=== PATIENT | female | born 1940 | race Two or more races ===

== ENCOUNTER 2025-03-25 19:08 | Inpatient (IN) | payer MEDICARE, MEDICAID, SELFPAY ==
[2025-03-25 19:14] VITALS: BP 163/140; PULSE 62; PULSE 84; RESP 18; RESP 26; TEMP 35.8; O2SAT 94; O2SAT 95
[2025-03-25 19:18] VITALS: BMI 26.6
--- NOTE | 2025-03-25 19:25 | PD.EDAMS ---
Altered Mental Status RME/HPI General Chief Complaint: Altered Mental Status Stated Complaint: AMS Time Seen by Provider: 03/25/25 19:40 Arrival date/time: 03/25/25 19:08 RME / HPI RME / HPI narrative: Dr. Horvath?s Main ED Evaluation: 84yo female with a history of TIA, CHF, COPD, anemia BIBA from [facility] presents to the ED for a chief complaint of altered mental status. Per EMS, patient is normally a GCS of 15, but appeared to be altered today, so they sent her over for evaluation. Patient endorses having dysuria and chills. Patient denies any cough, chest pain, abdominal pain, back pain or any other associated symptoms. No known allergies. Related Data Allergies Allergy/AdvReac Type Severity Reaction Status Date / Time No Known Allergies Allergy Verified 03/25/25 19:14 Review of Systems Review of Systems Systems Reviewed: All systems reviewed, normal except as documented ED Exam Narrative Physical exam: GENERAL APPEARANCE: alert and oriented x person and place, well-developed, well-nourished, no acute distress VITALS: All vitals were reviewed and the pulse ox is 98% on 5L, which is adequate according to my interpretation. HEENT: Normocephalic, atraumatic; pupils equal, round, reactive to light; EOMI; mucous membranes pink, moist; oropharynx clear NECK: Supple LUNGS: CTABL; no wheezes, no rales, no rhonchi HEART: Regular rate, regular rhythm; normal S1, S2; no murmurs ABDOMEN: non distended; normal BS; soft, no tenderness, no guarding, no rebound; no masses, no organomegaly, no hernia BACK: no CVA tenderness EXTREMITIES: atraumatic; no edema NEUROLOGIC: awake; alert and oriented x person and place; cranial nerves II-XII grossly intact; no focal sensory or motor deficits PSYCHIATRIC: appropriate mood and affect SKIN: warm, dry, normal color; no rashes Course Course Course Narrative: CXR is ordered for determining the etiology of AMS. Quality Measures Current suspected stage: ruled out Possible source: pulmonary Blood cultures ordered: yes Antibiotic ordered: Yes Pertinent labs: 03/25/25 20:04 Lactic Acid 0.5 mMol/L (0.4-2.0) Procalcitonin 0.10 ng/ml (0.0-0.49) sepsis Orders Category Date Time Status Admit to Inpatient Status Routine Admission 03/25/25 23:31 Active Patient Condition Routine Admission 03/25/25 23:31 Ordered Aspiration precautions ONCE Care 03/25/25 23:31 Active Bedside Blood Glucose NOW Care 03/25/25 19:48 Active Bedside Blood Glucose Q6HR Care 03/25/25 23:51 Active Bedside COVID-19 Antigen Test NOW Care 03/25/25 19:22 Active Bedside Influenza A&B Antigen Test NOW Care 03/25/25 19:22 Completed COVID-19 Screening Questionnaire NOW Care 03/25/25 19:22 Active Visual Developer now Care 03/25/25 19:48 Active Continuous Pulse Oximetry NOW Care 03/25/25 19:48 Completed IV [Insert IV] STAT Care 03/25/25 19:24 Active Insert IV NOW Care 03/25/25 19:48 Completed Miscellaneous Nursing Order NOW Care 03/25/25 23:36 Active NPO NOW Care 03/25/25 23:32 Active Notify provider NEEDED Care 03/25/25 23:31 Active Nurse Swallow Screen X1 Care 03/25/25 23:36 Active Seizure precautions NOW Care 03/25/25 23:52 Active Strict Intake and Output Routine Care 03/25/25 19:48 Ordered Strict Intake and Output Routine Care 03/25/25 23:32 Ordered Urinary Catheter NOW Care 03/25/25 19:48 Active Referral Speech Therapy Routine Cons 03/25/25 23:37 Active Diet NPO (NOW) Diet 03/25/25 23:[address] head/brain wo con Stat Exams 03/25/25 23:00 Taken XR chest 1V SEPSIS PROTOCOL Stat Exams 03/25/25 19:48 Completed A1C [Glycohemoglobin w (eAG)] AM DRAW Lab 03/26/25 05:00 Ordered ABG [Arterial Blood Gas] Stat Lab 03/26/25 01:01 Completed Ammonia Routine Lab 03/25/25 23:37 Completed Basic Metabolic Panel AM DRAW Lab 03/26/25 05:00 Ordered Basic Metabolic Panel AM DRAW Lab 03/27/25 05:00 Ordered Basic Metabolic Panel AM DRAW Lab 03/28/25 05:00 Ordered Blood Culture (Lab) Stat Lab 03/25/25 20:00 Received CBC AM DRAW Lab 03/26/25 05:00 Ordered CBC AM DRAW Lab 03/27/25 05:00 Ordered CBC AM DRAW Lab 03/28/25 05:00 Ordered CBC Stat Lab 03/25/25 20:04 Completed Comprehensive Metabolic Panel Stat Lab 03/25/25 20:04 Completed Creatine Kinase Routine Lab 03/25/25 23:46 Completed Lactate (Lactic Acid) Stat Lab 03/25/25 20:04 Completed Lipid Panel Routine Lab 03/26/25 05:00 Ordered MRSA Nasal Screen Stat Lab 03/25/25 23:45 Ordered Magnesium AM DRAW Lab 03/26/25 05:00 Ordered Magnesium AM DRAW Lab 03/27/25 05:00 Ordered Magnesium AM DRAW Lab 03/28/25 05:00 Ordered Magnesium Routine Lab 03/25/25 23:46 Completed Partial Thromboplastin Time AM DRAW Lab 03/26/25 05:00 Ordered Partial Thromboplastin Time Stat Lab 03/25/25 20:04 Completed Phosphorous AM DRAW Lab 03/26/25 05:00 Ordered Phosphorous AM DRAW Lab 03/27/25 05:00 Ordered Phosphorous AM DRAW Lab 03/28/25 05:00 Ordered Procalcitonin Stat Lab 03/25/25 20:04 Completed Prothrombin Time with INR AM DRAW Lab 03/26/25 05:00 Ordered Prothrombin Time with INR Stat Lab 03/25/25 20:04 Completed Thyroid Stimulating Hormone Routine Lab 03/26/25 05:00 Ordered Troponin I Stat Lab 03/25/25 20:04 Completed Type and Screen Routine Lab 03/25/25 23:35 Completed Urinalysis Stat Lab 03/25/25 20:04 Completed Urine Culture Stat Lab 03/25/25 20:04 Received Acetaminophen Ivpb [Ofirmev Inj] Med 03/25/25 19:54 Active 1,000 mg in 100 ml IV Q6H Acetaminophen Supp [Tylenol Supp] Med 03/25/25 23:31 Active 650 mg FL Q6H PRN Acetaminophen Tab [Tylenol Tab] Med 03/25/25 23:31 Active 650 mg PO Q6H PRN Apixaban [Eliquis] Med 03/26/25 09:00 Active 5 mg PO BID Ascorbic Acid [Vitamin C] Med 03/26/25 09:00 Active 500 mg PO BID Aspirin [Ecotrin] Med 03/26/25 09:00 Active 81 mg PO QDAY Atorvastatin Calcium [Lipitor] Med 03/26/25 21:00 Active 40 mg PO HS Azithromycin Inj [Zithromax Inj] 500 mg Med 03/26/25 09:00 Discontinued Sodium Chloride 0.9% 250 ml [Ns] 250 ml IV QDAY Azithromycin Inj [Zithromax Inj] 500 mg Med 03/25/25 19:52 Discontinued Sodium Chloride 0.9% 250 ml [Ns] 250 ml IV X1 Dextrose 50% Syr [D50w Syringe Abboject] Med 03/25/25 23:51 Active 25 ml IV Q15MIN PRN Dextrose 50% Syr [D50w Syringe Abboject] Med 03/25/25 23:51 Active 50 ml IV Q15MIN PRN Furosemide [Lasix] Med 03/25/25 23:45 Hold 20 mg PO Q48H Glucagon Inj Med 03/25/25 23:51 Active 1 mg IM Q15MIN PRN HYDROcodone*/APAP 5/325 [[place] 5/325] Med 03/25/25 23:31 Active 1 tab PO Q4HR PRN Ipratropium Killen Rt Ludmila [Atrovent Rt Ludmila] Med 03/25/25 23:36 Active 0.5 mg INH Q6HR PRN Labetalol Tab [Trandate Tab] Med 03/25/25 23:41 Hold 100 mg PO QDAY PRN Levalbuterol Rt [Xopenex Rt Ludmila] Med 03/25/25 23:36 Active 1.25 mg INH Q6HR PRN Losartan [Cozaar] Med 03/26/25 09:00 Discontinued 50 mg PO BID MethylPREDNISolone. [SoluMEDROL Inj] Med 03/26/25 09:00 Discontinued 40 mg IVP QDAY Ondansetron Inj [Zofran Inj] Med 03/25/25 23:31 Active 4 mg IV Q6H PRN Pantoprazole Inj [Protonix Inj] Med 03/26/25 09:00 Active 40 mg IV QDAY Senna [Senokot] Med 03/25/25 23:31 Active 1 tab PO QDAY PRN Sodium Chloride 0.9% 1000 ml [Ns] 1,000 ml Med 03/25/25 19:49 Discontinued IV 999 mls/hr Sodium Chloride Rt Ludmila 0.9% [NS Rt Ludmila 0.9%] Med 03/25/25 23:36 Active 3 ml INH PRN PRN bisacodyL [Dulcolax Supp] Med 03/25/25 23:36 Active 10 mg FL QDAY PRN cefTRIAXone/D5w 1gm IV premix [Rocephin/D5w 1gm IV Med 03/26/25 09:00 Active premix] 1 gm in 50 ml IV QDAY cefTRIAXone/D5w 1gm IV premix [Rocephin/D5w 1gm IV Med 03/25/25 19:51 Discontinued premix] 1 gm in 50 ml IV X1 hydrALAZINE HCL [Apresoline] Med 03/26/25 09:00 Hold 25 mg PO BID levETIRAcetam LIQD [Keppra] Med 03/26/25 09:00 Discontinued 500 mg PO BID Code Status Routine Oth 03/25/25 23:31 Ordered EKG (RT) Stat RT 03/25/25 19:48 Ordered Oxygen Delivery NOW RT 03/25/25 19:48 Active Oxygen Delivery PRN RT 03/25/25 23:31 Active Vital Signs Vital signs: Vital Signs Temperature 96.5 F L 03/25/25 19:14 Pulse Rate 84 03/25/25 19:14 Respiratory Rate 26 H 03/25/25 19:14 Blood Pressure 163/140 H 03/25/25 19:14 Pulse Oximetry (%) 95 03/25/25 19:14 Altered Mental Status MDM Narrative MDM Narrative:: Scribe Attestation: 03/25/25 - Randi Gonzalez am scribing for and in the presence of Dr. Horvath. 1945: Sepsis alert initiated. Orders made at this time are congruent with ED Adult Sepsis Order List. Re-evaluation is to be completed. 2010: NS IVF started. 2129: Patient's vital signs are: BP- 149/65, HR- 63, RR- 22-24, O2 Sat: 93% on 5L/NC. 2149: Sepsis reassessment performed consisting of lab review, vitals, physical exam including auscultation of heart, lungs, and visual evaluation of capillary refills, mucosal membranes and extremities. Patient met SIRS criteria however lactic, WBC, and pro obdulio are all within normal range. Reassessment complete, patient is not septic. 2257: Discussed case with the resident physician, attending Dr. Mckee from Hospitalist service regarding admission. Discussed patients ED course, exam findings, labs, and radiology results. The Hospitalist agrees to accept the patient for admission, but requests a CT head. 0048: Received a call from teleradiology that states the patient may have an acute infarction in the left side of the vivien, left cerebellar peduncle and left cerebellar hemisphere. CTA of the head and neck ordered. Teleneurology consult ordered. I reviewed Dr. Harris, the teleneurologist's note, who personally reviewed the CT head and does not feel the patient has an acute infarct and recommends getting a MRI of the brain in the morning. Does not feel the patient is a tPA candidate due to being on Eliquis. 0416: Discussed case with the resident physician, attending Dr. Mckee from Hospitalist service regarding admission. Discussed patients ED course, exam findings, labs, and radiology results. The Hospitalist agrees to accept the patient for admission Patient data External records reviewed:: [facility] previous records (Per chart review, patient has no previous ED visits or admissions to this facility.) and [facility] records (Per [facility], patient is a DNR with selective treatment.) Clinical information provided by:: patient Social determinants that could affect healthcare access:: housing (SNF resident) Patient has the following chronic illnesses:: TIA, CHF, COPD, anemia How is presenting disease/condition affected by chronic disease/condition?: uneffected by Evaluation data The following diagnostics were reviewed and interpreted by me:: lab results, radiology exam(s) and EKG tracing(s) Lab and/or radiology exams considered but not ordered:: none Interpretation Summary: Bedside COVID and Influenza are negative, WBC count is normal, HnH is low at 8.1/27.4, PT and INR are normal, PTT is normal, Glucose is 171, Lactic Acid is normal, Troponin is normal, Procalcitonin is normal, UA is unremarkable, according to my interpretation. CXR shows a right lower lobe infiltrate, small left pleural effusion, cardiomegaly, according to my interpretation. EKG done at 1918, NSR, rate of 68, frequent PACs, normal axis, no acute ischemia, according to my interpretation. Telerad Preliminary Report Draft Patient: [facility] S[facility]. Record#: [id number] Birthdate: 1940 Age/Sex: 84 / F Location: [address]: Jose Mckee MD Ordering Physician: Date of Service: Procedure(s): Accession Number(s): cc: ~ CT scan of the head without intravenous contrast (axial sections with sagittal and coronal reformats) March 26, 2025 0002 hours Clinical History: Altered mental status Comparison: No prior study is available for comparison. Findings: The evaluation is limited due to motion artifact. There is ill-defined hypodensity in the left side of the vivien, left cerebellar peduncle and left cerebellar hemisphere. There is no evidence of intracranial hemorrhage, mass effect or midline shift. There are periventricular white matter hypodensities, suggestive of chronic small vessel ischemia. Partially calcified falx cerebri is noted. There is mild volume loss. The calvarium is unremarkable. The mastoid air cells and the visualized paranasal sinuses are clear. Impression: Findings suggestive of acute infarction in the left side of the vivien, left cerebellar peduncle and left cerebellar hemisphere. Recommend clinical correlation and follow-up. No evidence of intracranial hemorrhage, mass effect or midline shift. Mild volume loss. Discussion Details: Results verbally communicated to : Dr. Horvath at 12:45 AM 03/26/2025 Report Electronically Signed By: Noah Sotelo 03/26/2025 12:55:57 AM Medications / Prescriptions Medications or Prescriptions considered but not ordered:: none Medication administrations:: Medication Administration History Acetaminophen (Acetaminophen 325 Mg Tablet) 650 mg PO Q6H PRN PRN Reason: Fever >101.5 Stop: 04/24/25 23:30 Acetaminophen (Acetaminophen Supp 650 Mg Supp) 650 mg FL Q6H PRN PRN Reason: PAIN SCALE 1-3 (mild Stop: 04/24/25 23:30 Hydrocodone Bitart/Acetaminophen (Hydrocodone/Apap 5/325 Tablet) 1 tab PO Q4HR PRN PRN Reason: Pain Scale 4-10 Stop: 03/30/25 23:30 Apixaban (Apixaban 2.5 Mg Tablet) 5 mg PO BID [facility] Stop: 04/25/25 08:59 Ascorbic Acid (Ascorbic Acid 250 Mg Tablet) 500 mg PO BID SALAZAR Stop: 04/25/25 08:59 Aspirin (Aspirin Ec 81 Mg Tabec) 81 mg PO QDAY [facility] Stop: 04/25/25 08:59 Atorvastatin Calcium (Atorvastatin Calcium 20 Mg Tablet) 40 mg PO HS [facility] Stop: 04/25/25 20:59 Bisacodyl (Bisacodyl 10 Mg Supp) 10 mg FL QDAY PRN; Protocol PRN Reason: CONSTIPATION Stop: 04/24/25 23:35 Dextrose (Dextrose 50%-Water Inj 50 Ml Syringe) 25 ml IV Q15MIN PRN PRN Reason: BG 50-70 responsive npo pt Stop: 04/24/25 23:50 Dextrose (Dextrose 50%-Water Inj 50 Ml Syringe) 50 ml IV Q15MIN PRN PRN Reason: BG <50 OR BG <70 & pt unresponsive Stop: 04/24/25 23:50 Diltiazem HCl (Diltiazem Cd 180 Mg Capcr) 180 mg PO QDAY [facility]AR Stop: 04/25/25 08:59 Furosemide (Furosemide 20 Mg Tablet) 20 mg PO Q48H [facility]AZAR Stop: 04/24/25 23:44 Last Admin: 03/26/25 02:57 Dose: Not Given Documented By: KT Non-Admin Reason: Other, see note Glucagon (Glucagon Inj 1 Mg Vial) 1 mg IM Q15MIN PRN PRN Reason: BG <70, and no IV access Hydralazine HCl (Hydralazine Hcl 25 Mg Tablet) 25 mg PO BID [facility]AR Stop: 04/25/25 08:59 Acetaminophen (Ofirmev Inj) 1,000 mg in 100 mls @ 250 mls/hr IV Q6H SALAZAR Stop: 03/26/25 14:17 Last Infusion: 03/26/25 03:35 Dose: Infused Documented By: Admin: 03/26/25 03:03 Dose: 250 mls/hr Documented By: Infusion: 03/25/25 20:38 Dose: Infused Documented By: Admin: 03/25/25 20:10 Dose: 250 mls/hr Documented By: KAILEE Ceftriaxone Sodium/Dextrose (Rocephin/D5w 1gm Iv Premix) 1 gm in 50 mls @ 100 mls/hr IV QDAY SALAZAR Stop: 04/02/25 08:59 Sodium Chloride (Ns) 1,000 mls @ 75 mls/hr IV .[id number] SALAZAR Stop: 04/25/25 02:18 Last Admin: 03/26/25 03:02 Dose: 75 mls/hr Documented By: EE Azithromycin 250 mg/ Sodium (Chloride) 250 mls @ 250 mls/hr IV QDAY SALAZAR Stop: 03/29/25 08:59 Insulin Human Lispro (Insulin Lispro (Admelog) 1 Unit/0.01 Ml Unit) 0 unit SC Q6HR SALAZAR; Protocol Stop: 04/25/25 05:59 Ipratropium Killen (Ipratropium Rt 0.5 Mg/ 2.5 Ml Nebu) 0.5 mg INH Q6HR PRN PRN Reason: SHORTNESS OF BREATH Stop: 04/24/25 23:35 Labetalol HCl (Labetalol 100 Mg Tablet) 100 mg PO QDAY PRN PRN Reason: HTN Stop: 04/25/25 08:59 Levalbuterol HCl (Levalbuterol Rt 1.25 Mg/0.5 Ml Nebu) 1.25 mg INH Q6HR PRN PRN Reason: WHEEZING Stop: 04/24/25 23:35 Levetiracetam (Levetiracetam Inj 100 Mg/Ml Vial 5ml) 500 mg IVP Q12HR SALAZAR Stop: 04/25/25 02:19 Last Admin: 03/26/25 03:05 Dose: 500 mg Documented By: EE Methylprednisolone Sodium Succinate (Methylprednisolone Sod Succ 40 Mg Vial) 40 mg IVP QDAY SALAZAR Stop: 04/02/25 02:19 Last Admin: 03/26/25 03:05 Dose: 40 mg Documented By: EE Ondansetron HCl (Ondansetron Inj 2 Mg/Ml Inj 2 Ml) 4 mg IV Q6H PRN; Protocol PRN Reason: NAUSEA OR VOMITING Stop: 04/24/25 23:30 Pantoprazole Sodium (Pantoprazole Inj 40 Mg Vial) 40 mg IV QDAY SALAZAR Stop: 04/25/25 08:59 Sennosides (Senna Tablet) 1 tab PO QDAY PRN; Protocol PRN Reason: constipation Stop: 04/24/25 23:30 Sodium Chloride (Sodium Chloride Rt Ludmila 0.9% 3 Ml Nebu) 3 ml INH PRN PRN PRN Reason: SOLN Stop: 04/24/25 23:35 Discontinued Medications Sodium Chloride (Ns) 1,000 mls @ 999 mls/hr IV .Q1H1M ONE Stop: 03/25/25 20:49 Last Infusion: 03/25/25 21:19 Dose: Infused Documented By: Admin: 03/25/25 20:11 Dose: 999 mls/hr Documented By: KAILEE Ceftriaxone Sodium/Dextrose (Rocephin/D5w 1gm Iv Premix) 1 gm in 50 mls @ 100 mls/hr IV X1 ONE Stop: 03/25/25 20:20 Last Infusion: 03/25/25 20:56 Dose: Infused Documented By: Admin: 03/25/25 20:11 Dose: 100 mls/hr Documented By: KAILEE Azithromycin 500 mg/ Sodium (Chloride) 250 mls @ 250 mls/hr IV X1 ONE Stop: 03/25/25 20:51 Last Infusion: 03/25/25 22:03 Dose: Infused Documented By: Admin: 03/25/25 20:36 Dose: 250 mls/hr Documented By: KAILEE Azithromycin 500 mg/ Sodium (Chloride) 250 mls @ 250 mls/hr IV QDAY SALAZAR Stop: 03/29/25 08:59 Magnesium Sulfate/Dextrose (Magnesium Sulfate Ivpb) 1 gm in 100 mls @ 100 mls/hr IV X1 ONE Stop: 03/26/25 02:22 Last Admin: 03/26/25 03:22 Dose: 100 mls/hr Documented By: KAILEE Levetiracetam (Levetiracetam Liqd 500 Mg/5 Ml Udc) 500 mg PO BID [facility] Stop: 04/25/25 08:59 Losartan Potassium (Losartan Potassium 25 Mg Tablet) 50 mg PO BID [facility] Stop: 04/25/25 08:59 Methylprednisolone Sodium Succinate (Methylprednisolone Sod Succ 40 Mg Vial) 40 mg IVP QDAY SALAZAR Stop: 04/02/25 08:59 see above Consultations Consultation(s) initiated? (list below): Yes Diagnosis Differential diagnosis altered mental status: sepsis and other (UTI, severe sepsis, septic shock, pneumonia, medication error) Most likely diagnosis given after review of the tests above:: dehydration, pneumonia, sepsis Admission Indicated Admission indicated?: indicated Admission Request Was there a request for admission?: Yes Admission Attestation Admission request attestation: Discussed case with [] from Hospitalist service regarding admission. Discussed patients ED course, exam findings, labs, and radiology results. The Hospitalist [agrees,declines] to accept the patient for admission. Disposition Plan Disposition Plan: Admit Critical Care Time Critical Care Time Critical Care Time: Yes Total Critical Care Time (min.): 35 Attestation: The high probability of sudden, clinically significant deterioration in the patient?s condition required the highest level of my preparedness to intervene urgently. The services I provided to this patient were to treat and/or prevent clinically significant deterioration. Services included the following: chart data review, reviewing nursing notes and/or old charts, documentation time, desktop support consultant collaboration regarding findings and treatment options, medication orders and management, direct patient care, vital sign assessments and ordering, interpreting and reviewing diagnostic studies and lab tests. Aggregate critical care time includes only time during which I was engaged in work directly related to the patient?s care, as described above, whether at bedside or elsewhere in the Emergency Department. It did not include time spent performing other reported procedures or the services of residents, students, nurses or physician assistants. Discharge Plan Plan Patient Disposition: Admit Acute Care w/in Hospital Problem List Clinical Impression: Dehydration, Sepsis, Pneumonia
--- NOTE | 2025-03-25 19:48 | XR_ITS ---
Examination: AP chest single view TECHNIQUE: AP portable upright chest single view. March 25, 2025 2016 hours INDICATIONS: Sepsis chest pain shortness of breath today FINDINGS: [id number] heart failure Mild enlargement cardiac contour. Prominent vascular congestion including central vascular engorgement. Perihilar edema. Significant bibasilar pneumonia with mild to moderate bilateral pleural effusions Severe erosive changes glenohumeral joints, seen with rheumatoid arthritis IMPRESSION: [id number] heart failure Significant bibasilar pneumonia
[2025-03-25] MEDS: ACETAMINOPHEN IVPB 1,000 MG/100 ML VIAL 250 MG IV (20:10)
[2025-03-25] MEDS: cefTRIAXone/D5w 1gm IV premix 1 GM/50 ML BAG IV (20:11)
[2025-03-25] MEDS: SODIUM CHLORIDE 0.9% 1000 ML 1,000 ML 999 ML IV (20:11)
[2025-03-25 20:13] LABS: Collection Type, Urine Catheter
[2025-03-25 20:14] LABS: Lactate (Lactic Acid) 0.5 mMol/L (0.4-2.0)
[2025-03-25 20:16] LABS: Basophils % (Auto) 0 % (0-2.5); Eosinophils % (Auto) 0 % (0-10); Hematocrit 27.4 % (36.0-46.0); Immature Granulocytes % (Auto) 1 % (0-0); Immature Granulocytes Auto 0.05 Thou/mm3 (0.00-0.00); Lymphocytes # (Auto) 0.5 Thou/mm3 (1.0-4.8); Lymphocytes % (Auto) 5 % (10-50); Mean Corpuscular HGB Conc 29.6 g/dl (31.0-37.0); Mean Corpuscular Hemoglobin 25.9 pg (25.0-35.0); Mean Corpuscular Volume 88 fL (80-100); Monocytes # (Auto) 0.6 Thou/mm3 (0.0-0.8); Monocytes % (Auto) 6 % (0-12); Neutrophils # (Auto) 8.7 Thou/mm3 (1.8-7.7); Neutrophils % (Auto) 89 % (37-80); Nucleated Red Blood Cell % 0 /100 WBC (0); Platelet Count 309 Thou/mm3 (140-440); RDW Standard Deviation 51.3 fL (36.4-46.3); Red Blood Count 3.13 Miln/mm3 (4.00-5.20); White Blood Count 9.8 Thou/mm3 (3.6-11.0)
[2025-03-25 20:23] LABS: Bilirubin,Urine Negative (Negative); Blood,Urine Negative (Negative); Clarity,Urine Clear (Clear/Hazy); Color,Urine Lt-Yellow (Lt Yel-Yel); Glucose, Urine Negative (Negative); Hyaline Casts,Urine < 1 /hpf (0-1); Ketones,Urine Negative (Negative); Leukocyte Esterase,Urine Negative (Negative); Nitrite,Urine Negative (Negative); Protein,Urine 1+ (Neg - Trace); RBC,Urine 1 /hpf (0-3); Specific Gravity,Urine 1.017 (1.001-1.035); Squamous Epithelial Cell,Urine < 1 /hpf (0-5); Urobilinogen,Urine Negative mg/dL (0.0-1.0); WBC,Urine 2 /hpf (0-5)
[2025-03-25 20:28] LABS: Hemoglobin 8.1 g/dL (12.0-16.0)
[2025-03-25 20:29] LABS: INR 1.1 (0.9-1.3); Partial Thromboplastin Time 28.3 Seconds (22.0-36.0); Prothrombin Time 11.5 Seconds (9.0-12.2)
[2025-03-25 20:35] VITALS: BP 153/62; PULSE 61; RESP 100; RESP 17; O2SAT 100
[2025-03-25] MEDS: AZITHROMYCIN INJ 500 MG in SODIUM CHLORIDE 0.9% 250 ML 250 ML 250 MG IV (20:36)
[2025-03-25 20:39] LABS: Alanine Aminotransferase 17 U/L (10-49); Albumin, Serum 4.2 gm/dL (3.4-4.8); Albumin/Globulin Ratio 1.9 (1.2-2.2); Alkaline Phosphatase 92 U/L (46-116); Anion Gap 3 (7-16); Aspartate Amino Transferase 14 U/L (0-34); BUN/Creatinine Ratio 26 Ratio (12-20); Bilirubin,Total 0.2 mg/dL (0.3-1.2); Blood Urea Nitrogen 21 mg/dL (9-23); Calcium 9.2 mg/dL (8.3-10.6); Calcium (Corrected) 9.2 mg/dL (8.5-10.1); Carbon Dioxide 35.5 mMol/L (20.0-31.0); Chloride 101 mMol/L (98-107); Creatinine (Component) 0.8 mg/dL (0.6-1.3); Estimated Creatinine Clearance 52.2 mL/min (>60); Globulin 2.2 gm/dL (2.3-3.5); Glucose 171 mg/dL (74-106); Osmolality,Calculated 284 (275-295); Potassium 5.1 mMol/L (3.4-5.1); Sodium 139 mMol/L (136-145); Total Protein 6.4 gm/dL (5.7-8.2); Troponin I < 0.020 ng/mL (0.0-0.045); eGFR > 60 See Note
[2025-03-25 21:26] VITALS: BP 149/65; PULSE 63; RESP 24; O2SAT 93
[2025-03-25 21:51] VITALS: BP 149/65; PULSE 66; RESP 21; TEMP 36.1; O2SAT 93
--- NOTE | 2025-03-25 23:00 | XR_ITS ---
Examination: CT brain head without contrast. 2-D sagittal coronal reconstructions Date and time of exam:March 26, 2025 at 0003 hours INDICATIONS: Altered mental status beginning 2 days ago CTDI: vol (mGy):55.6 DLP: (mGycm):11 Technique: Multiple CT axial sections of the brain have been obtained, 5 mm slice thickness. Contrast has not been administered. 2-D sagittal, coronal reconstructions have been obtained Low dose protocols were performed. One or more of the following dose reduction techniques were used; automated exposure control, adjustment of the mA and/or KV according to patient size, use of iterative reconstruction technique. Findings: No significant ventricular enlargement. Low density in the left brain stem axial image 30 which may be artifactual, clinical correlation advised Intra-axial or extra-axial hemorrhage density is not seen. No mass effect or midline shift Basal cisterns are not remarkable. Fourth ventricle is midline. Cranial vault intact. Impression: Negative for acute hemorrhage, mass effect or midline shift Low density in the left brain stem, axial image 30, which may be artifactual, clinical correlation advised, recommend brain MRI MRA, stroke protocol, follow-up
[2025-03-25 23:53] VITALS: O2SAT 92
--- NOTE | 2025-03-25 23:53 | ESHP_ITS ---
Documentation for date of: 03/25/25 HPI History of Present Illness Chief complaint: SOB,AMS History of present illness: This patient is a 84-year-old female from [facility] with past medical history of pulmonary hypertension, A-fib on Eliquis, hypertension, hyperlipidemia, TIA on aspirin, polyneuropathy is on gabapentin, CHF with diastolic dysfunction, COPD, chronic anemia and constipation, muscle weakness and difficulty walking presented on 03/25/25 with chief complaint of worsening shortness of breath and altered mental status per [facility] nursing. Per EMS, patient was altered and usually has a GCS of 15 per nursing facility. She denied having cough however reported to have some chills. Patient reported that she was having some chills however denied any other complaints and was extremely somnolent. She appears to be alert and oriented x 3 however goes back to sleep. Denied abdominal discomfort, nausea vomiting or any other complaint. Per POLST form, patient is DNR. Per nursing, patient is on oxygen at the facility around 3 L. ED course In the ED, patient was slightly hypertensive, had irregular pulse, tachypneic and hypothermic with temperature 96.5. She was saturating 95% on 4 L NC. Labs showed stable white count. Hemoglobin at 8.1. Platelet count 309. Chemistry panel was showing borderline hyerokalemia with potassium 5.1. Bicarb elevated at 35.5. Kidney function stable with BUN 21 and creatinine 0.8. Blood glucose 171. Lactic acid 0.5. Procalcitonin negative. Liver enzymes within normal limits. Troponin I was negative. UA showed proteinuria.Chest x-ray showed prominent vascular congestion and bibasilar pneumonia. In the ED, patient received ceftriaxone and azithromycin x 1 with 1 L bolus of NS.Head CT showed acute infarction in the left side of vivien, left cerebellar peduncle and left cerebellar hemisphere. Teleneuro has been consulted. ABGs showed pH 7.15, pCO2 104, pO2 196. Bicarb 36. Teleneuro recommended to do an MRI brain without contrast and reported the patient was out of window for tPA and did not give a bolus of aspirin for now. Due to hypercapnia patient was started her on BiPAP immediately. PMH: As above PSH: Unknown Allergies: NKDA SH: Per patient: Denies smoking, drinking alcohol. No history of illicit drug use. Medications: Labetalol 100 mg as needed if SBP above 160, hydralazine 25 twice daily, losartan 50 twice daily, aspirin 81 mg, Eliquis 5 twice daily, laxatives, levalbuterol and fluticasone inhaler, Keppra 500 twice daily, tramadol 50 mg BID and Gabapentin 300 mg twice a day Patient is admitted for further workup and management of acute encephalopathy likely stroke and acute hypercapnic respiratory failure due to COPD versus community-acquired pneumonia. Review of Systems Review of Systems Systems Reviewed: All systems reviewed, normal except as documented Past Medical History Past Medical History NEUROLOGIC: Positive Cerebrovascular Accident CARDIAC: Positive Atrial Fibrillation, Coronary Artery Disease, Hypercholesterolemia, Congestive Heart Failure and Hypertension RESPIRATORY: Positive Chronic Obstructive Pulmonary Disease (COPD) MUSCULOSKELETAL: Positive Arthritis Exam Vital Signs Temp Pulse Resp BP Pulse Ox O2 Del Method O2 Flow Rate 97.0 F 66 21 H 149/65 H 93 L Nasal Cannula 2 03/25/25 21:51 03/25/25 21:51 03/25/25 21:51 03/25/25 21:51 03/25/25 21:51 03/25/25 21:51 03/25/25 21:51 Narrative Exam GENERAL APPEARANCE: Patient is AO x 3 however somnolent to answer questions. Saturating well on 3 L nasal cannula. HEENT: NC, AT. MMM. EOMI, clear conjunctiva, oropharynx clear. NECK: Supple without lymphadenopathy. No stiffness or restricted ROM. HEART: Irregular rate and irregular regular rhythm, normal S1/S2, late Diastolic murmur +2 LUNGS: CTAB, moving air well. No crackles or wheezes are heard. ABDOMEN: Soft, nontender, nondistended with good bowel sounds heard. BACK: No CVAT, no obvious deformity. EXTREMITIES: Bilateral lower extremity 1+ edema noticed up to knee. NEUROLOGICAL: Grossly nonfocal. Alert and oriented x 3, moving all 4 extremities. CN not formally tested but appear grossly intact. Skin: Warm and dry without any rash. Psych: Extremely somnolent to respond to questions Results: Labs 03/25/25 20:04 03/25/25 20:04 Labs: Short CBC 03/25/25 Range/Units 20:04 WBC 9.8 (3.6-11.0) Thou/mm3 Hgb 8.1 L (12.0-16.0) g/dL Hct 27.4 L (36.0-46.0) % Plt Count 309 (140-440) Thou/mm3 BMP 03/25/25 20:04 Sodium 139 Potassium 5.1 Chloride 101 Carbon Dioxide 35.5 H BUN 21 Creatinine 0.8 Glucose 171 H Calcium 9.2 Cardiac Enzymes 03/25/25 Range/Units 20:04 Troponin I < 0.020 (0.0-0.045) ng/mL Liver Function 03/25/25 Range/Units 20:04 Total Bilirubin 0.2 L (0.3-1.2) mg/dL AST 14 (0-34) U/L ALT 17 (10-49) U/L Alkaline Phosphatase 92 (46-116) U/L Albumin 4.2 (3.4-4.8) gm/dL Urine 03/25/25 Range/Units 20:04 Urine Color Lt-Yellow (Lt Yel-Yel) Urine Clarity Clear (Clear/Hazy) Urine pH 6.0 (5.0-7.0) Ur Specific [place] 1.017 (1.001-1.035) Urine Protein 1+ A (Neg - Trace) Urine Glucose (UA) Negative (Negative) Quality Measures Quality Measures sepsis Current suspected stage: sepsis Possible source: pulmonary Blood cultures ordered: yes Antibiotic ordered: Yes Advance care planning discussed with:: other Medications Home Medications and Allergies Allergies Allergy/AdvReac Type Severity Reaction Status Date / Time No Known Allergies Allergy Verified 03/25/25 19:14 Visit Medications Acetaminophen (Acetaminophen 325 Mg Tablet) 650 mg PO Q6H PRN PRN Reason: Fever >101.5 Stop: 04/24/25 23:30 Acetaminophen (Acetaminophen Supp 650 Mg Supp) 650 mg IN Q6H PRN PRN Reason: PAIN SCALE 1-3 (mild Stop: 04/24/25 23:30 Hydrocodone Bitart/Acetaminophen (Hydrocodone/Apap 5/325 Tablet) 1 tab PO Q4HR PRN PRN Reason: Pain Scale 4-10 Stop: 03/30/25 23:30 Apixaban (Apixaban 2.5 Mg Tablet) 5 mg PO BID [facility] Stop: 04/25/25 08:59 Ascorbic Acid (Ascorbic Acid 250 Mg Tablet) 500 mg PO BID [facility] Stop: 04/25/25 08:59 Aspirin (Aspirin Ec 81 Mg Tabec) 81 mg PO QDAY [facility] Stop: 04/25/25 08:59 Atorvastatin Calcium (Atorvastatin Calcium 20 Mg Tablet) 40 mg PO HS [facility] Stop: 04/25/25 20:59 Bisacodyl (Bisacodyl 10 Mg Supp) 10 mg IN QDAY PRN; Protocol PRN Reason: CONSTIPATION Stop: 04/24/25 23:35 Dextrose (Dextrose 50%-Water Inj 50 Ml Syringe) 25 ml IV Q15MIN PRN PRN Reason: BG 50-70 responsive npo pt Stop: 04/24/25 23:50 Dextrose (Dextrose 50%-Water Inj 50 Ml Syringe) 50 ml IV Q15MIN PRN PRN Reason: BG <50 OR BG <70 & pt unresponsive Stop: 04/24/25 23:50 Furosemide (Furosemide 20 Mg Tablet) 20 mg PO Q48H SALZAAR Stop: 04/24/25 23:44 Glucagon (Glucagon Inj 1 Mg Vial) 1 mg IM Q15MIN PRN PRN Reason: BG <70, and no IV access Hydralazine HCl (Hydralazine Hcl 25 Mg Tablet) 25 mg PO BID [facility] Stop: 04/25/25 08:59 Acetaminophen (Ofirmev Inj) 1,000 mg in 100 mls @ 250 mls/hr IV Q6H [facility] Stop: 03/26/25 14:17 Last Infusion: 03/25/25 20:38 Dose: Infused Ceftriaxone Sodium/Dextrose (Rocephin/D5w 1gm Iv Premix) 50 mls @ 100 mls/hr IV QDAY [facility]AZAR Stop: 04/01/25 23:35 Azithromycin 500 mg/ Sodium (Chloride) 250 mls @ 250 mls/hr IV QDAY [facility] Stop: 03/29/25 08:59 Ipratropium [place] (Ipratropium Rt 0.5 Mg/ 2.5 Ml Nebu) 0.5 mg INH Q6HR PRN PRN Reason: SHORTNESS OF BREATH Stop: 04/24/25 23:35 Labetalol HCl (Labetalol 100 Mg Tablet) 100 mg PO QDAY PRN PRN Reason: HTN Stop: 04/25/25 08:59 Levalbuterol HCl (Levalbuterol Rt 1.25 Mg/0.5 Ml Nebu) 1.25 mg INH Q6HR PRN PRN Reason: WHEEZING Stop: 04/24/25 23:35 Levetiracetam (Levetiracetam Liqd 500 Mg/5 Ml Udc) 500 mg PO BID [facility] Stop: 04/25/25 08:59 Losartan Potassium (Losartan Potassium 25 Mg Tablet) 50 mg PO BID [facility] Stop: 04/25/25 08:59 Methylprednisolone Sodium Succinate (Methylprednisolone Sod Succ 40 Mg Vial) 40 mg IVP QDAY [facility]AZAR Stop: 04/02/25 08:59 Ondansetron HCl (Ondansetron Inj 2 Mg/Ml Inj 2 Ml) 4 mg IV Q6H PRN; Protocol PRN Reason: NAUSEA OR VOMITING Stop: 04/24/25 23:30 Pantoprazole Sodium (Pantoprazole Inj 40 Mg Vial) 40 mg IV QDAY [facility]AZAR Stop: 04/25/25 08:59 Sennosides (Senna Tablet) 1 tab PO QDAY PRN; Protocol PRN Reason: constipation Stop: 04/24/25 23:30 Sodium Chloride (Sodium Chloride Rt Ludmila 0.9% 3 Ml Nebu) 3 ml INH PRN PRN PRN Reason: SOLN Stop: 04/24/25 23:35 Discontinued Medications Sodium Chloride (Ns) 1,000 mls @ 999 mls/hr IV .Q1H1M ONE Stop: 03/25/25 20:49 Last Infusion: 03/25/25 21:19 Dose: Infused Ceftriaxone Sodium/Dextrose (Rocephin/D5w 1gm Iv Premix) 1 gm in 50 mls @ 100 mls/hr IV X1 ONE Stop: 03/25/25 20:20 Last Infusion: 03/25/25 20:56 Dose: Infused Azithromycin 500 mg/ Sodium (Chloride) 250 mls @ 250 mls/hr IV X1 ONE Stop: 03/25/25 20:51 Last Infusion: 03/25/25 22:03 Dose: Infused Assessment & Plan Plan This patient is a 84-year-old female from [facility] with past medical history of pulmonary hypertension, A-fib on Eliquis, hypertension, hyperlipidemia, TIA on aspirin, polyneuropathy is on gabapentin, CHF with diastolic dysfunction, COPD, chronic anemia and constipation, muscle weakness and difficulty walking presented on 03/25/25 with chief complaint of worsening shortness of breath and altered mental status per [facility] nursing. admitted for further workup and management of acute encephalopathy likely stroke and acute hypercapnic respiratory failure due to COPD versus community-acquired pneumonia. #Acute encephalopathy likely related to hypercapnia versus stroke versus polypharmacy #Stroke workup #Hypercapnia likely due to COPD ?Patient came with altered mental status. Per EMS patient has a GCS of 15. Patient takes tramadol 50 mg BID and Gabapentin 300 mg twice a day at the facility. ? Head CT showed acute infarction in the left side of vivien, left cerebellar peduncle and left cerebellar hemisphere. ? Teleneuro recommended to do an MRI brain without contrast and reported the patient was out of window for tPA as symptoms with unknown time and did not give a bolus of aspirin for now. ?Patient was altered to answer any questions for teleneuro. Plan: ? Started on BiPAP to help with CO2 retention ? Ordered MRI brain without contrast to rule out stroke ? Teleneuro has been consulted ? Will allow permissive hypertension ? Head of the bed elevation ? Aspiration precautions ? Speech therapy/PT ? Consulting neurologist, Dr Jose, appreciate recs ? Follow-up with MRI brain without contrast and echo with bubble study ? Holding pain medications and ordered serum Ammonia ? Bladder scan to evaluate for urine retention ? Treating infection follow-up with ABGs #Acute hypercapnic respiratory failure Likely due to COPD versus community- acquired pneumonia ? Patient presented due to worsening shortness of breath and altered mental status. Patient uses BiPAP at the facility per nursing. ?She was slightly hypertensive, had irregular pulse, tachypneic and hypothermic with temperature 96.5. She was saturating 95% on 4 L NC. She is on Oxygen at facility around 3 L ?Labs showed stable white count. Chemistry panel was showing borderline hyperkalemia with potassium 5.1. Bicarb elevated at 35.5.Lactic acid 0.5. Procalcitonin negative. ?Troponin I was negative.Chest x-ray showed prominent vascular congestion and bibasilar pneumonia. ?ABGs showed pH 7.15, pCO2 104, pO2 196. Bicarb 36. Plan: ? Started on BiPAP as tolerated ? Started IV ceftriaxone and azithromycin and IV solumedrol 40 mg qday ? Levalbuterol and Ipratropium ? Oxygen as needed, goal of oxygen 88-90% ? F/U with BC and MRSA screen ? F/U with morning labs #History of CHF with diastolic dysfunction #History of pulmonary hypertension #Mild contraction alkalosis on diuretics -Patient did had 1+ edema in both lower extremities. She is taking Lasix every other day. ?No echo on file Plan: ?Resumed Lasix 20 mg every other day ?Strict DILIP's with fluid restriction upto 1500 cc ?Monitor electrolytes closely #History of hypertension #History of hyperlipidemia ? Patient was taking losartan, hydralazine and labetalol Plan: ?Held blood pressure medications ?Monitor vitals #History of TIA on aspirin ? Patient takes aspirin at the facility Plan: ?resumed aspirin until nurse swallow screen #History of chronic pain on tramadol and gabapentin ? Per patient's medication patient takes tramadol and gabapentin at the facility. Plan: ? Currently holding tramadol 50 mg BID and Gabapentin 300 mg twice a day due to altered mentation #History of seizures ? Patient takes Keppra at the facility Plan: ? Resumed IV Keppra 500 mg twice daily ? Seizure precautions ? Ordered CK to rule out any seizing activity given altered mental status #History of chronic A-fib on Eliquis ? Patient is currently rate controlled. EKG showed A-fib with rate 80 bpm. Troponin I was negative. ? [id number] score:7 and HAS-Bled 4 Plan: ? Held diltiazem Er 180 mg once a day ? Continue Eliquis 5 mg twice daily ? Keep mag above 2 and potassium above 4 ? Telemetry monitoring #Normocytic anemia ? Hemoglobin at 8.1. Plan: ? Iron studies and FOBT to rule out GI bleed ?Type and screen ? PRBC hemoglobin drops below 7 #History of GERD ? Patient takes pantoprazole 20 mg Plan: ? Protonix 40 mg IV daily #Hyperglycemia: ?BG was elevated around 162 and YA showing some proteins Plan: ?ISS with accu checks and hypoglycemia protocol ?F/U with A1c Health maintenance Diet: N.p.o. until nurse swallow screen and speech eval GI prophylaxis: Protonix 40 mg IV daily DVT prophylaxis: Eliquis 5 mg twice daily CODE STATUS: DNR per POLST form from [facility] Disposition: Patient is admitted for further workup and management of acute encephalopathy likely stroke and acute hypercapnic respiratory failure due to community-acquired pneumonia. Patient was seen and discussed with attending physician, Dr.Bishwakarma Dr. Milka MD, PGY-2 Attending Provider Attestation/Addendum I attest that I was physically present for the evaluation, physical examination, lab and imaging review of the patient with the residents. I discussed the case with the residents and agree with the findings and plans of care as documented above. Patient is an 84 years old female with past medical history of pulmonary hypertension, A-fib, hypertension, hyperlipidemia, TIA, polyneuropathy, CHF, COPD, chronic anemia and constipation who presented to the ED with complaint of shortness of breath and altered mental status. At bedside, patient is somnolent but easily wakes up on calling was able to answer simple questions including questions for orientation. in the ED, she was mildly hypertensive, tachypneic, saturating around 95% on 4 L nasal cannula. Lab results show hemoglobin of 8.1, potassium 5.1, bicarbonate 35.5. Chest x-ray showed prominent vascular congestion and bibasilar pneumonia. Head CT was obtained, preliminary read shows acute infection in the left side of vivien, left cerebral peduncle and left cerebellar hemisphere. Teleneurology was consulted. Recommended brain MRI and aspirin. Unknown last well-known time, not a candidate for tPA. ABG was obtained, showed pH of 7.15, PCO2 104, patient was started on BiPAP. We will admit the patient for management of acute encephalopathy likely secondary to hypercapnia versus stroke. Started on BiPAP, aspirin, aspiration precautions. We will obtain in-house neurology consult, brain MRI, physical and speech therapy. Patient is started on IV Rocephin and azithromycin along with Solu- Medrol, levalbuterol and ipratropium as needed. We will obtain cultures results. Home medications were continued for CHF, seizure, A-fib. Holding antihypertensive to allow permissive hypertension. We will obtain iron studies and FOBT as patient has low hemoglobin, no apparent source of active bleeding. Jose Mckee MD
[2025-03-26] VITALS (22 sets, daily range): BP systolic 92–175; BP diastolic 54–115; PULSE 62–108; RESP 12–32; TEMP 36.2–38.5; O2SAT 92–100
--- NOTE | 2025-03-26 | XR_ITS ---
Examinations: MRI Brain without intravenous contrast. MRA brain without intravenous contrast. MRA carotids without intravenous contrast 3-D vascular reconstructions Date and time of exam: March 26, 2025, 1648 hours INDICATIONS: Worsening shortness of breath altered mental status beginning this week Technique: Multiple axial and sagittal images of the brain have been obtained MRA brain carotid images without contrast obtained, including 3-D postprocessing, vascular maximum intensity projection images Findings: Sellaturcica is not enlarged. The optic chiasm and infundibular stalk are not remarkable. Prepontine and interpeduncular cisterns are not enlarged. No localized enlargement of the medulla or vivien. Fourth ventricle and cerebellar tonsils normal in position. Subacute hemorrhage is not seen. Fourth ventricle is midline. Mass in the cerebellopontine angle region is not evident. 7th and 8th nerve complexes exhibits symmetry. Globes are symmetrical with no retro-orbital mass. Increased white matter signal prominent Diffusion-weighted images demonstrate no focus of restricted diffusion Mass-effect upon the ventricular system is not identified. MRA carotid images degraded by patient motion. MRA brain images no large vessel occlusions Impression: Negative for acute hemorrhage mass effect or midline shift No acute infarct Chronic multi-infarct dementia pattern No cerebral large vessel arterial occlusions
--- NOTE | 2025-03-26 00:50 | XR_ITS ---
Examination: CTA carotids with intravenous contrast CTA brain, head with intravenous contrast. 2-D sagittal, coronal reconstructions. 3-D reconstructions. Exam date and time: March 26, 2025 at 0421 hours INDICATIONS: Altered mental status episodes beginning 2 days ago CTDI: vol (mGy) 10.8 DLP: (mGycm) 463 Technique: Multiple CTA axial brain, head carotid images post intravenous contrast injection 100 cc, [id number]. 2-D sagittal, coronal reconstructions. 3-D reconstructions, 3-D post processing including vascular maximum intensity projection images. Low dose protocols were performed. One or more of the following dose reduction techniques were used; automated exposure control, adjustment of the mA and/or KV according to patient size, use of iterative reconstruction technique. Findings: Multiple bilateral thyroid nodules, the largest 22 mm left thyroid lobe Septal pulmonary edema in the lung vargas with pleural disease No significant common carotid carotid bifurcation or internal carotid artery stenoses Mildly dominant left vertebral artery with no critical stenoses No cerebral artificial mitral occlusions thrombosed dissection or cerebral aneurysm IMPRESSION: Multiple bilateral thyroid nodules Pulmonary edema with partial visualization bilateral pleural effusions No significant neck arterial stenoses No cerebral large vessel arterial occlusions
--- NOTE | 2025-03-26 00:55 | PC.NURSE ---
Case [id number]/26/2025 00:54:58 [facility] Case # [id number] has been created.
--- NOTE | 2025-03-26 00:56 | PRELIM_ITS ---
CT scan of the head without intravenous contrast (axial sections with sagittal and coronal reformats) March 26, 2025 0002 hours Clinical History: Altered mental status Comparison: No prior study is available for comparison. Findings: The evaluation is limited due to motion artifact. There is ill-defined hypodensity in the left side of the vivien, left cerebellar peduncle and left cerebellar hemisphere. There is no evidence of intracranial hemorrhage, mass effect or midline shift. There are periventricular white matter hypodensities, suggestive of chronic small vessel ischemia. Partially calcified falx cerebri is noted. There is mild volume loss. The calvarium is unremarkable. The mastoid air cells and the visualized paranasal sinuses are clear. Impression: Findings suggestive of acute infarction in the left side of the vivien, left cerebellar peduncle and left cerebellar hemisphere. Recommend clinical correlation and follow-up. No evidence of intracranial hemorrhage, mass effect or midline shift. Mild volume loss. Discussion Details: Results verbally communicated to : Dr. Horvath at 12:45 AM 03/26/2025 Report Electronically Signed By: Noah Sotelo 03/26/2025 12:55:57 AM [EST]
--- NOTE | 2025-03-26 00:58 | PC.NURSE ---
DR. TORIBIO FROM TELE NEURO CONSULT.
[2025-03-26 01:03] LABS: Base Excess 6 (-3-3); HCO3 36 mEq/L (20-26); Inspired Oxygen, FIO2 21 %; O2 Saturation 100 % (91-98); PCO2 104 mmHg (32.0-48.0); PO2 196 mmHg (83-108)
[2025-03-26 01:04] LABS: Allen Test Performed/OK; Puncture Site Right Radial
[2025-03-26 01:06] LABS: pH, Arterial 7.15 (7.35-7.45)
[2025-03-26 01:12] LABS: Ammonia 17 uMol/L (11-32)
[2025-03-26 01:13] LABS: Creatine Kinase 29 U/L (34-171); Magnesium 1.9 mg/dL (1.6-2.6)
[2025-03-26 01:23] LABS: Ferritin 13 ng/mL (7.3-270.7); Iron 26 mcg/dL (50-170); Percent Iron Saturation 8 % (20-55); Total Iron Binding Capacity 293 mcg/dL (250-425); Unsaturated Iron Binding 267 (225-295)
--- NOTE | 2025-03-26 02:05 | ECHO_ITS ---
Transthoracic Echo Report Ht (in): 66 Wt (lb): 165 Exam Location: Echo Lab Status: Inpatient Icicle Machine Operator: Mame Smiley Indications: Procedure Performed: BP: 133 / 80 HR: 121 Technical Quality: Technically difficult study MEASUREMENTS (Male / Female) Normal Values 2D ECHO LV Diastolic Diameter PLAX 3.8 cm 4.2 - 5.9 / 3.9 - 5.3 cm LV Systolic Diameter PLAX 2.6 cm IVS Diastolic Thickness 1.1 cm 0.6 - 1.0 / 0.6 - 0.9 cm LVPW Diastolic Thickness 1.1 cm 0.6 - 1.0 / 0.6 - 0.9 cm LV Relative Wall Thickness 0.6 LVOT Diameter 1.9 cm Aortic Root Diameter 2.8 cm LA Systolic Diameter LX 3.7 cm 3.0 - 4.0 / 2.7 - 3.8 cm LV Ejection Fraction MOD BP 59.2 % >= 55 % LV Cardiac Index MOD BP 3786.8 cm?/min?m? LV Ejection Fraction MOD 4C 69.4 % LV Cardiac Index MOD 4C 3838.2 cm?/min?m? LV Ejection Fraction 4C AL 70.4 % LV Cardiac Index 4C AL 4009.9 cm?/min?m? LV Ejection Fraction MOD 2C 46.5 % LV Cardiac Index MOD 2C 3317.4 cm?/min?m? LV Ejection Fraction 2C AL 49.0 % LV Cardiac Index 2C AL 3603.9 cm?/min?m? LA Volume Index 26.1 cm?/m? 16 - 28 cm?/m? DOPPLER AV Peak Velocity 263.0 cm/s AV Peak Gradient 27.7 mmHg AV Mean Gradient 10.0 mmHg AV Velocity Time Integral 50.2 cm LVOT Peak Velocity 136.0 cm/s LVOT Peak Gradient 7.4 mmHg LVOT Velocity Time Integral 30.1 cm LVOT Cardiac Index 5486.7 cm?/min?m? AV Area Cont Eq vti 1.7 cm? AV Area Cont Eq pk 1.5 cm? MV Area PHT 4.2 cm? MR Peak Velocity 297.0 cm/s MR Peak Gradient 35.3 mmHg Mitral E Point Velocity 134.0 cm/s Mitral A Point Velocity 139.0 cm/s Mitral E to A Ratio 1.0 LV E' Lateral Velocity 8.1 cm/s Mitral E to LV E' Lateral Ratio 16.6 LV E' Septal Velocity 7.4 cm/s Mitral E to LV E' Septal Ratio 18.1 TR Peak Velocity 387.5 cm/s TR Peak Gradient 60.1 mmHg PV Peak Velocity 206.0 cm/s PV Peak Gradient 17.0 mmHg FINDINGS Left Ventricle Normal left ventricular size, systolic function with no obvious regional wall motion abnormalities. Mild LVH. Normal left ventricular diastolic filling pattern for age. The ejection fraction is visually estimated at 55 %. Right Ventricle The right ventricle is normal in size and systolic function. The estimated right ventricular systolic pressure, 56 mmHg. RAP 5. Left Atrium The left atrium is normal by two-dimensional, color flow and Doppler imaging with no structural abnormalities, no thrombus formation present. Right Atrium The right atrium is normal by two-dimensional imaging, color flow and Doppler imaging with no structural abnormalities, no thrombus formation present. Atrial Septum The interatrial septum appears normal with no evidence of a shunt. Aorta The aorta is normal by two-dimensional, color flow and Doppler interrogation. Mitral Valve The mitral valve is normal by two-dimensional, color flow and Doppler interrogation. Mild mitral regurgitation. Aortic Valve Aortic valve sclerosis. Tricuspid Valve The tricuspid valve is normal by two-dimensional, color flow and Doppler interrogation.there is mild to moderate tricuspid valve regurgitation. Pulmonic Valve The pulmonic valve is not well visualized. There is no significant pulmonic valve regurgitation. Vessels The pulmonary artery appears normal. The inferior vena cava pulmonary and hepatic veins appear normal. Pericardium The pericardium is normal by two-dimensional imaging. There is no significant pericardial effusion. CONCLUSIONS Indication: Bubble study Negative bubble study Normal LV size and function. Mild LVH. Estimated EF 55% RV is normal in size and systolic function. The estimated RVSP, 56 mmHg. RAP 5. Mild MR. AV Sclerosis. Mild to moderaate TR. Josh Harley (Electronically Signed) Final Date: 28 March 2025 07:25
--- NOTE | 2025-03-26 02:07 | PC.NURSE ---
PER DR. SMITH HOLD ALL MEDS AT THIS TIME.
--- NOTE | 2025-03-26 02:10 | PD.TNEURO ---
Tele Neuro Consultation Consultation Date 03/26/25 Most Recent Vital Signs Last Vital Signs Temp 97.8 F 03/26/25 01:09 Pulse 62 03/26/25 01:09 Resp 18 03/26/25 01:09 BP 140/54 H 03/26/25 01:09 Pulse Ox 100 03/26/25 01:09 O2 Del Method Nasal Cannula 03/26/25 01:09 O2 Flow Rate 4 03/26/25 00:27 Laboratory-Coagulation Panel PT 11.5 Seconds (9.0-12.2) 03/25/25 20:04 INR 1.1 (0.9-1.3) 03/25/25 20:04 APTT 28.3 Seconds (22.0-36.0) 03/25/25 20:04 Consultation Narrative [facility] TeleNeurology Consult Services Stat Consult Patient Name:???andi jacobs Date of :???1940 Identification Number:??? Date of Service:???03/26/2025 00:54:58 Diagnosis:?G93.49 - Encephalopathy Multifactorial Impression 84 y/o woman presenting with SOB. CT head reported as possible acute stroke in the left vivien, left cerebellar peduncle. Not personally convinced that there is an acute infarct on head CT per personal review. Not a thrombolytic candidate due to DOAC use and unclear LKN. Poor functional baseline also makes her a poor candidate for intervention. Examination extremely limited due to obtundation from hypercapnic respiratory failure. Would benefit from MRI brain wo contrast for evaluation of stroke when able. Ok to continue Eliquis. Recommendations: Our recommendations are outlined below. Diagnostic Studies :MRI head without contrast Laboratory Studies :Lipid panel I orderedHemoglobin A1c Antithrombotic Medication :Aspirin 81 mg PO daily Anticoagulant Medication :Eliquis 5mg bid Nursing Recommendations :IV Fluids, avoid dextrose containing fluids, Maintain euglycemia Neuro checks q4 hrs x 24 hrs and then per shift Head of bed 30 degrees Continue with Telemetry Consultations :Recommend Speech therapy if failed dysphagia screen Physical therapy/Occupational therapy DVT Prophylaxis :Choice of Primary Team Disposition :Neurology will follow Metrics: Dispatch Time: 03/26/2025 00:54:58 Callback Response Time: 03/26/2025 00:55:19 Primary Provider Notified of Diagnostic Impression and Management Plan on: 03/26/2025 02:00:58 CT HEAD: Reviewed Reported as possible hypoattenuation in the left vivien Chief Complaint: SOB and AMS History of Present Illness:Patient is a 84 year old Female. 84 y/o woman with history of pulmonary HTN, afib on Eliquis, previous TIA, CHF presenting with worsening SOB and AMS. CT head revealing for possible stroke in the left vivien, cerebellar peduncle and left cerebellar hemisphere. Patient increasing somnolent with ABG showing hypercapnic respiratory failure. Past Medical History: ?Atrial Fibrillation Other PMH:? CHF ?TIA Medications: Anticoagulant use:??Yes?Eliquis No Antiplatelet use Reviewed EMR for current medications Allergies:? Reviewed Social History: Unable To Obtain Due To Patient Status :?Patient Is Obtunded/ Comatose Family History: There is no family history of premature cerebrovascular disease pertinent to this consultation ROS : 14 Points Review of Systems was performed and was negative except mentioned in HPI. Past Surgical History: There Is No Surgical History Contributory To Today?s Visit Examination: BP(140/54),?Pulse(62), Spoke with :?Hospitalist at bedside Coma Exam: Ventilator:??No on BiPAP Obtunded. Responds to Voice:??No Responds to Sternal rub:??No Spontaneous limb movement:? Right arm:?No Left arm:?No Right leg:?No Left leg:?No This consult was conducted in real time using interactive audio and video technology. Patient was informed of the technology being used for this visit and agreed to proceed. Patient located in hospital and provider located at home/office setting. Patient is being evaluated for possible acute neurologic impairment and high probability of imminent or life - threatening deterioration.I spent total of 16 minutes providing care to this patient, including time for face to face visit via telemedicine, review of medical records, imaging studies and discussion of findings with providers, the patient and / or family. Dr Briseyda Harris [facility] For Inpatient follow-up with [facility] physician please call [facility] at . As we are not an outpatient service for any post hospital discharge needs please contact the hospital for assistance. If you have any questions for the [facility] physicians or need to reconsult for clinical or diagnostic changes please contact us via [facility] at .
--- NOTE | 2025-03-26 02:19 | PD.RESEVENT ---
Documentation for date of: 03/26/25 Event Note Event Note: Event note: Patient's person to notify, Friend Angela Mccall on [phone] was contacted and informed regarding patient's critical ill state. She was informed that patient is currently having acute hypercapnic respiratory failure as well as possible stroke based on head CT findings. Given high risk of aspiration due to altered mentation, we explained that we will give a trial of BiPAP to see if it helps to blow off CO2 and she was agreeable to the plan. She will be updated on further investigation for stroke as well and it would be great if she would be able to come tomorrow morning to discuss further regarding patient's condition and in any case if they will be any further update or decline in patient's condition she will be notified immediately.As patient is DNR/DNI Per POLST form we would not be proceeding towards intubation and friend was informed about it. Discussion was performed in the presence of attending physician, . Patient was discussed with attending physician, . Dr. Milka MD, PGY 2
[2025-03-26] MEDS: SODIUM CHLORIDE 0.9% 1000 ML 1,000 ML 75 ML IV (03:02)
[2025-03-26] MEDS: ACETAMINOPHEN IVPB 1,000 MG/100 ML VIAL 250 MG IV ×2 (03:03→10:12)
[2025-03-26] MEDS: levETIRAcetam INJ 100 MG/ML VIAL 5ML 500 MG IVP ×3 (03:05→20:34)
[2025-03-26] MEDS: Magnesium Sulfate 1 gm Ivpb 1 GM/100 ML BAG IV (03:22)
[2025-03-26 05:10] LABS: Base Excess 7 (-3-3); HCO3 35 mEq/L (20-26); Inspired Oxygen, FIO2 28 %; O2 Saturation 92 % (91-98); PCO2 68 mmHg (32.0-48.0); PO2 60 mmHg (83-108); pH, Arterial 7.31 (7.35-7.45)
[2025-03-26 05:16] LABS: Allen Test Performed/OK; Puncture Site Right Radial
[2025-03-26 05:24] LABS: Basophils % (Auto) 0 % (0-2.5); Eosinophils # (Auto) 0.1 Thou/mm3 (0.0-0.5); Eosinophils % (Auto) 1 % (0-10); Hematocrit 23.8 % (36.0-46.0); Immature Granulocytes % (Auto) 0 % (0-0); Immature Granulocytes Auto 0.03 Thou/mm3 (0.00-0.00); Lymphocytes # (Auto) 0.5 Thou/mm3 (1.0-4.8); Lymphocytes % (Auto) 5 % (10-50); Mean Corpuscular Hemoglobin 26.3 pg (25.0-35.0); Mean Corpuscular Volume 91 fL (80-100); Monocytes # (Auto) 0.3 Thou/mm3 (0.0-0.8); Monocytes % (Auto) 4 % (0-12); Neutrophils # (Auto) 7.5 Thou/mm3 (1.8-7.7); Neutrophils % (Auto) 89 % (37-80); Nucleated Red Blood Cell % 0 /100 WBC (0); Platelet Count 245 Thou/mm3 (140-440); RDW Standard Deviation 52.7 fL (36.4-46.3); Red Blood Count 2.62 Miln/mm3 (4.00-5.20); White Blood Count 8.4 Thou/mm3 (3.6-11.0)
[2025-03-26 05:28] LABS: Hemoglobin 6.9 g/dL (12.0-16.0)
--- NOTE | 2025-03-26 05:34 | PRELIM_ITS ---
CT angiogram of the head and neck with intravenous contrast (axial sections with sagittal and coronal reformats) March 26, 2025 at 0416 hours Clinical History: Ischemic cerebrovascular accident. Comparison: No prior study is available for comparison. Findings: The aortic arch to the extent visualized as well as the origins of the right brachiocephalic, left common carotid, and left subclavian arteries are patent. The common carotid arteries, carotid bulbs, and internal and external carotid arteries are patent. The origins of the vertebral arteries are unremarkable. No evidence of vascular occlusion, significant stenosis, dissection or aneurysm. Bilateral pleural effusions and pulmonary edema. Mild mediastinal lymphadenopathy. 1.7 cm left thyroid cyst or nodule. Subcentimeter right thyroid cyst or nodule. C3-C4 ankylosis. Diffuse degenerative disc disease. Impression: No evidence of vascular occlusion, significant stenosis, dissection or aneurysm. Bilateral thyroid cysts/nodules. Recommend follow-up Bilateral pleural effusions and pulmonary edema Method of Assessment: NASCET CRITERIA, using direct reference to measurements of distal internal carotid diameter as the denominator for stenosis measurement. Mild stenosis: 0% to 49%/ Moderate stenosis: 50% to 69% / Severe stenosis: 70% to 99%: Reference: https://www.ahajournals.org/doi/pdf/[email or web address] Brain [address] angiogram with intravenous contrast. Axial images with sagittal and coronal reconstructions. MIPS were reviewed. The distal vertebral arteries, basilar, internal carotid arteries, bilateral anterior, middle, and posterior cerebral arteries are unremarkable. No aneurysm or hemodynamically significant stenosis is seen. Vertebral arteries are codominant. The posterior communicating arteries are unremarkable to the extent visualized. Impression: Normal brain CT angiogram. Discussion Details: Results verbally communicated to : Dr. Haro at 05:23 AM 03/26/2025 Report Electronically Signed By: Henrik Villalta 03/26/2025 5:34:30 AM [EST]
[2025-03-26 05:37] LABS: Path Review Blood Smear Sent to Pathologist
[2025-03-26 05:42] LABS: INR 1.1 (0.9-1.3); Partial Thromboplastin Time 29.2 Seconds (22.0-36.0); Prothrombin Time 11.5 Seconds (9.0-12.2)
[2025-03-26 05:48] LABS: Anion Gap 3 (7-16); BUN/Creatinine Ratio 36 Ratio (12-20); Blood Urea Nitrogen 25 mg/dL (9-23); Calcium 8.6 mg/dL (8.3-10.6); Carbon Dioxide 35.5 mMol/L (20.0-31.0); Cardiac Risk Estimate 2.5 RATIO (3.7-5.6); Chloride 105 mMol/L (98-107); Cholesterol 144 mg/dL (132-200); Creatinine (Component) 0.7 mg/dL (0.6-1.3); Estimated Creatinine Clearance 59.7 mL/min (>60); Glucose 105 mg/dL (74-106); HDL Cholesterol 58 mg/dL (40-60); LDL Cholesterol,Calculated 77 mg/dL (0-130); Osmolality,Calculated 289 (275-295); Phosphorous 3.6 mg/dL (2.4-5.1); Potassium 5.2 mMol/L (3.4-5.1); Sodium 143 mMol/L (136-145); Thyroid Stimulating Hormone 1.66 uIU/mL (0.55-4.78); Triglycerides 43 mg/dL (30-150); eGFR > 60 See Note
--- NOTE | 2025-03-26 07:30 | PC.NURSE ---
ATTEMPTED TO CONTACT NEXT OF KIN FOR MRI SCREENING, NO ANSWER AT THIS TIME, VOICEMAIL LEFT REQUESTING CALL BACK.
[2025-03-26] MEDS: cefTRIAXone/D5w 1gm IV premix 1 GM/50 ML BAG IV (10:11)
[2025-03-26] MEDS: PANTOPRAZOLE INJ 40 MG VIAL IV (10:17)
--- NOTE | 2025-03-26 11:43 | ESPR_ITS ---
Documentation for date of: 03/26/25 Subjective Subjective Interval history: No acute overnight events. Patient was seen and examined at bedside. Repeat labs revealed anemia with hemoglobin of 6.9, hematocrit 23.8, patient was given 1 PRBC, repeat hemoglobin was 8. Upon our evaluation patient was AO x 3, acute encephalopathy has resolved, repeat ABG revealed pH of 7.31, PCO2 of 68, patient stated that in the past she was told that she needs a BiPAP machine at night, however she never followed as it was uncomfortable for her to wear during the night. Will continue COPD exacerbation treatment with steroids, BiPAP at night, patient was instructed she needs to wear it in order to avoid further hypercapnia that can be a cause of encephalopathy. Also will follow-up with MRI of the brain, neuroexam but will follow his recommendations. Exam Vital Signs Temp Pulse Resp BP Pulse Ox O2 Del Method O2 Flow Rate 101.3 F H 87 20 174/89 H 95 BiPAP 28 03/26/25 11:13 03/26/25 11:13 03/26/25 11:13 03/26/25 11:13 03/26/25 11:13 03/26/25 10:00 03/26/25 10:03 FiO2 28 03/26/25 10:00 Narrative Exam GENERAL: no acute distress, AAO x3, well nourished. HEENT: Head AT/ NC. Mucous membranes moist. PERRL. NECK: Supple, no lymphadenopathy, no carotid bruits. CARDIOVASCULAR: RRR. Normal S1/S2, No m/r/g. RESPIRATORY: Mild wheezing was noted bilaterally, negative for rhonchi, crackles, however exam was limited due to body habitus GASTROINTESTINAL: Abdomen soft, protuberant, non tender no palpable masses. Bowel sounds present in all 4 quadrants. MUSCULOSKELETAL:? No cyanosis or edema, no visible joint swelling. NEUROLOGICAL: CN II-XII grossly intact. . Sensation intact, symmetric. PSYCHIATRIC: Awake and alert, not agitated, normal mood and affect. INTEGUMENTARY: No obvious rashes, no jaundice, normal turgor. Objective Labs 03/27/25 05:41 03/27/25 05:41 Labs: Laboratory Results - last 24 hr 03/25/25 03/26/25 03/26/25 20:04 00:40 01:01 WBC 9.8 RBC 3.13 L Hgb 8.1 L Hct 27.4 L MCV 88 MCH 25.9 MCHC 29.6 L RDW Std Deviation 51.3 H Plt Count 309 Neut % (Auto) 89 H Lymph % (Auto) 5 L [place] % (Auto) 6 Eos % (Auto) 0 Baso % (Auto) 0 Neut # (Auto) 8.7 H Lymph # (Auto) 0.5 L [place] # (Auto) 0.6 Eos # (Auto) 0.0 Baso # (Auto) 0.0 Immature Gran # (Auto) 0.05 H Absolute Nucleated RBC 0.00 Immature Gran % 1 H Nucleated RBC % 0 Smear Path Review PT 11.5 INR 1.1 APTT 28.3 Puncture Site Right Radial ABG pH 7.15 L* ABG pCO2 104 H* ABG pO2 196 H ABG HCO3 36 H ABG O2 Saturation 100 H ABG Base Excess 6 H FiO2 21 Sodium 139 Potassium 5.1 Chloride 101 Carbon Dioxide 35.5 H Anion Gap 3 L BUN 21 Creatinine 0.8 Estim Creat Clear Calc 52.2 L eGFR > 60 BUN/Creatinine Ratio 26 H Glucose [address] Glu mg/dL Hemoglobin A1c Calculated Osmolality 284 Lactic Acid 0.5 Calcium 9.2 Corrected Calcium 9.2 Phosphorus Magnesium 1.9 Iron 26 L TIBC 293 Iron Saturation 8 L Unsat Iron Binding 267 Ferritin 13 Total Bilirubin 0.2 L AST 14 ALT 17 Alkaline Phosphatase 92 Ammonia 17 Total Creatine Kinase 29 L Troponin I < 0.020 Total Protein 6.4 Albumin 4.2 Globulin 2.2 L Albumin/Globulin Ratio 1.9 Triglycerides Cholesterol LDL Cholesterol, Calc HDL Cholesterol Cholesterol/HDL Ratio Procalcitonin 0.10 TSH Ur Collection Type Catheter Urine Color Lt-Yellow Urine Clarity Clear Urine pH 6.0 Ur Specific [place] 1.017 Urine Protein 1+ A Urine Glucose (UA) Negative Urine Ketones Negative Urine Blood Negative Urine Nitrite Negative Urine Bilirubin Negative Urine Urobilinogen (Auto) Negative Ur Leukocyte Esterase Negative Urine RBC 1 Urine WBC 2 Ur Squamous Epith Cells < 1 Urine Bacteria None Hyaline Casts < 1 Blood Type O Positive Antibody Screen NEGATIVE Crossmatch See Detail Blood Bank Wristband ID Yes 03/26/25 05:06 WBC 8.4 RBC 2.62 L Hgb 6.9 L* Hct 23.8 L MCV 91 MCH 26.3 MCHC 29.0 L RDW Std Deviation 52.7 H Plt Count 245 D Neut % (Auto) 89 H Lymph % (Auto) 5 L [place] % (Auto) 4 Eos % (Auto) 1 Baso % (Auto) 0 Neut # (Auto) 7.5 Lymph # (Auto) 0.5 L [place] # (Auto) 0.3 Eos # (Auto) 0.1 Baso # (Auto) 0.0 Immature Gran # (Auto) 0.03 H Absolute Nucleated RBC 0.00 Immature Gran % 0 Nucleated RBC % 0 Smear Path Review Sent to Pathologist PT 11.5 INR 1.1 APTT 29.2 Puncture Site Right Radial ABG pH 7.31 L D ABG pCO2 68 H D ABG pO2 60 L D ABG HCO3 35 H ABG O2 Saturation 92 ABG Base Excess 7 H FiO2 28 Sodium 143 Potassium 5.2 H Chloride 105 Carbon Dioxide 35.5 H Anion Gap 3 L BUN 25 H Creatinine 0.7 Estim Creat Clear Calc 59.7 L eGFR > 60 BUN/Creatinine Ratio 36 H Glucose [address] Glu mg/dL Cancelled Hemoglobin A1c Cancelled Calculated Osmolality 289 Lactic Acid Calcium 8.6 Corrected Calcium Phosphorus 3.6 Magnesium 2.0 Iron TIBC Iron Saturation Unsat Iron Binding Ferritin Total Bilirubin AST ALT Alkaline Phosphatase [place] Total Creatine Kinase Troponin I Total Protein Albumin Globulin Albumin/Globulin Ratio Triglycerides 43 Cholesterol 144 LDL Cholesterol, Calc 77 HDL Cholesterol 58 Cholesterol/HDL Ratio 2.5 L Procalcitonin TSH 1.66 Ur Collection Type Urine Color Urine Clarity Urine pH Ur Specific [place] Urine Protein Urine Glucose (UA) Urine Ketones Urine Blood Urine Nitrite Urine Bilirubin Urine Urobilinogen (Auto) Ur Leukocyte Esterase Urine RBC Urine WBC Ur Squamous Epith Cells Urine Bacteria Hyaline Casts Blood Type Antibody Screen Crossmatch Blood Bank Wristband ID ABG Interpretation ABG results: 03/26/25 03/26/25 01:01 05:06 ABG pH 7.15 L* 7.31 L D ABG pCO2 104 H* 68 H D ABG pO2 196 H 60 L D ABG HCO3 36 H 35 H ABG O2 Saturation 100 H 92 ABG Base Excess 6 H 7 H Quality Measures Quality Measures sepsis Current suspected stage: ruled out Possible source: pulmonary Blood cultures ordered: yes Antibiotic ordered: Yes Advance care planning discussed with:: patient Assessment & Plan Assessment Current Active Medications: Generic Name Dose Route Start Last Admin Trade Name Freq PRN Reason Stop Dose Admin Acetaminophen 650 mg 04/25/25 23:31 Acetaminophen 325 Mg Tablet PO 04/24/25 23:30 Q6H PRN Fever >101.5 Acetaminophen 650 mg 03/25/25 23:31 Acetaminophen Supp 650 Mg Supp [place] 04/24/25 23:30 Q6H PRN PAIN SCALE 1-3 (mild Hydrocodone Bitart/Acetaminophen 1 tab 03/25/25 23:31 Hydrocodone/Apap 5/325 Tablet PO 03/30/25 23:30 Q4HR PRN Pain Scale 4-10 Apixaban 5 mg 03/26/25 09:00 Apixaban 2.5 Mg Tablet PO 04/25/25 08:59 BID SALAZAR Ascorbic Acid 500 mg 03/26/25 09:00 Ascorbic Acid 250 Mg Tablet PO 04/25/25 08:59 BID SALAZAR Aspirin 81 mg 03/26/25 09:00 Aspirin Ec 81 Mg Tabec PO 04/25/25 08:59 QDAY SALAZAR Atorvastatin Calcium 40 mg 03/26/25 21:00 Atorvastatin Calcium 20 Mg Tablet PO 04/25/25 20:59 HS SALAZAR Bisacodyl 10 mg 03/25/25 23:36 Bisacodyl 10 Mg Supp [place] 04/24/25 23:35 QDAY PRN CONSTIPATION Protocol Dextrose 25 ml 03/25/25 23:51 Dextrose 50%-Water Inj 50 Ml Syringe IV 04/24/25 23:50 Q15MIN PRN BG 50-70 responsive npo pt Dextrose 50 ml 03/25/25 23:51 Dextrose 50%-Water Inj 50 Ml Syringe IV 04/24/25 23:50 Q15MIN PRN BG <50 OR BG <70 & pt unresponsive Glucagon 1 mg 03/25/25 23:51 Glucagon Inj 1 Mg Vial IM Q15MIN PRN BG <70, and no IV access Hydralazine HCl 25 mg 03/26/25 09:00 Hydralazine Hcl 25 Mg Tablet PO 04/25/25 08:59 BID [facility] Acetaminophen 1,000 mg in 100 mls @ 250 mls/hr 03/25/25 19:54 03/26/25 11:27 Ofirmev Inj IV 03/26/25 14:17 Infused Q6H SALAZAR Infusion Ceftriaxone Sodium/Dextrose 1 gm in 50 mls @ 100 mls/hr 03/26/25 09:00 03/26/25 11:27 Rocephin/D5w 1gm Iv Premix IV 04/02/25 08:59 Infused QDAY SALAZAR Infusion Sodium Chloride 1,000 mls @ 75 mls/hr 03/26/25 02:19 03/26/25 03:02 Ns IV 04/25/25 02:18 75 mls/hr .[id number] SALAZAR Administration Azithromycin 250 mg/ Sodium 250 mls @ 250 mls/hr 03/26/25 21:00 Chloride IV 04/02/25 20:59 QDAY@2100 SALAZAR Insulin Human Lispro 0 unit 03/26/25 06:00 03/26/25 07:00 Insulin Lispro (Admelog) 1 Unit/0.01 Ml Unit SC 04/25/25 05:59 Not Given Q6HR SALAZAR Protocol Ipratropium [place] 0.5 mg 03/25/25 23:36 Ipratropium Rt 0.5 Mg/ 2.5 Ml Nebu INH 04/24/25 23:35 Q6HR PRN SHORTNESS OF BREATH Levalbuterol HCl 1.25 mg 03/25/25 23:36 Levalbuterol Rt 1.25 Mg/0.5 Ml Nebu INH 04/24/25 23:35 Q6HR PRN WHEEZING Levetiracetam 500 mg 03/26/25 02:20 03/26/25 10:12 Levetiracetam Inj 100 Mg/Ml Vial 5ml IVP 04/25/25 02:19 500 mg Q12HR SALAZAR Administration Methylprednisolone Sodium Succinate 40 mg 03/26/25 02:20 03/26/25 10:13 Methylprednisolone Sod Succ 40 Mg Vial IVP 04/02/25 02:19 40 mg QDAY SALAZAR Administration Ondansetron HCl 4 mg 03/25/25 23:31 Ondansetron Inj 2 Mg/Ml Inj 2 Ml IV 04/24/25 23:30 Q6H PRN NAUSEA OR VOMITING Protocol Pantoprazole Sodium 40 mg 03/26/25 09:00 03/26/25 10:17 Pantoprazole Inj 40 Mg Vial IV 04/25/25 08:59 40 mg QDAY SALAZAR Administration Sennosides 1 tab 03/25/25 23:31 Senna Tablet PO 04/24/25 23:30 QDAY PRN constipation Protocol Sodium Chloride 3 ml 03/25/25 23:36 Sodium Chloride Rt [place] 0.9% 3 Ml Nebu INH 04/24/25 23:35 PRN PRN SOLN Plan This patient is a 84-year-old female from [facility] with past medical history of pulmonary hypertension, A-fib on Eliquis, hypertension, hyperlipidemia, TIA on aspirin, polyneuropathy is on gabapentin, CHF with diastolic dysfunction, COPD, chronic anemia and constipation, muscle weakness and difficulty walking presented on 03/25/25 with chief complaint of worsening shortness of breath and altered mental status per [facility] nursing. Patient was admitted for further workup and management of acute encephalopathy likely in a setting of acute hypercapnic respiratory failure due to COPD versus community-acquired pneumonia and stroke #Acute encephalopathy likely related to hypercapnia versus stroke versus polypharmacy-resolved #Stroke workup #Hypercapnia likely due to COPD Patient came with altered mental status. Per EMS patient has a GCS of 15. Patient takes tramadol 50 mg BID and Gabapentin 300 mg twice a day at the facility. Head CT (prelim) :showed acute infarction in the left side of vivien, left cerebellar peduncle and left cerebellar hemisphere; However final read are :Low density in the left brain stem axial image 30 which may be artifactual, clinical correlation advised Teleneuro recommended to do an MRI brain without contrast and reported the patient was out of window for tPA as symptoms with unknown time and did not give a bolus of aspirin for now. ABG : remarkable for respiratory acidosis ? Bipap HS ? Ordered MRI brain without contrast to rule out stroke ? Teleneuro has been consulted ? Will allow permissive hypertension ? Head of the bed elevation ? Aspiration precautions ? Speech therapy/PT ? Consulting neurologist, Dr Jose, appreciate recs ? Follow-up with MRI brain without contrast and echo with bubble study ? Treating underlying cause #Acute hypercapnic respiratory failure Likely due to COPD exacerbation #CAP #COPD exacerbation Patient presented due to worsening shortness of breath and altered mental status. Patient uses BiPAP at the facility per nursing. She was slightly hypertensive, had irregular pulse, tachypneic and hypothermic with temperature 96.5. She was saturating 95% on 4 L NC. She is on Oxygen at facility around 3 L Labs showed stable white count. Chemistry panel was showing borderline hyperkalemia with potassium 5.1. Bicarb elevated at 35.5.Lactic acid 0.5. Procalcitonin negative. Troponin I was negative.Chest x-ray showed prominent vascular congestion and bibasilar pneumonia. ABGs showed pH 7.15, pCO2 104, pO2 196. Bicarb 36. ? Started on BiPAP as tolerated ? Started IV ceftriaxone and azithromycin and - IV solumedrol 40 mg qday ? Levalbuterol and Ipratropium ? Oxygen as needed, goal of oxygen 88-90% ? F/U with BC and MRSA screen ? F/U with morning labs #History of CHF with diastolic dysfunction #History of pulmonary hypertension #Mild contraction alkalosis on diuretics Patient did had 1+ edema in both lower extremities. She is taking Lasix every other day. ?pending med rec ?Strict DILIP's with fluid restriction upto 1500 cc ?Monitor electrolytes closely -ECHO follow #History of hypertension #History of hyperlipidemia Patient was taking losartan, hydralazine and labetalol ?resumed GIANG, pending the rest of the med recs ?Monitor vitals #History of TIA on aspirin -ASA 81 #History of chronic pain on tramadol and gabapentin Per patient's medication patient takes tramadol and gabapentin at the facility. -pending med recs #History of seizures ? Patient takes Keppra at the facility, resumed #History of chronic A-fib on Eliquis Patient is currently rate controlled. EKG showed A-fib with rate 80 bpm. Troponin I was negative. [id number] score:7 and HAS-Bled 4 -Continue Eliquis 5 mg twice daily -Keep mag above 2 and potassium above 4 -Telemetry monitoring #Normocytic anemia Hemoglobin at 8.1. Hbg droped, patient recieved 1 PRBC repeat HxH was 8, ?FOBT to rule out GI bleed -monitor Hx H #History of GERD ? PPI40 Disposition:tele DVT prophylaxis: elequis GI prophylaxis: PPI Diet: disphagia 2 Lines: PIV CODE STATUS:DNR per POLST form from [facility] Patient care was discussed with attending physician Dr. Inocencia Aranda MD PGY-2 I have carefully reviewed this document. Due to imperfections in the voice software, there could be grammatical errors including phonetic/typographic errors. This in no way compromises the medical care the patient is receiving Attending Provider Attestation/Addendum I, Maryse Pro, DO, attest that I was physically present for the gracia portions of the service and evaluated the patient with the resident and I reviewed and discussed the case with the resident and agree with the resident's findings and plans of care as documented above Patient seen and evaluated this AM. Friend is at bedside and states that patient had complained about feeling short of breath about 2 days ago. However, patient admits that the BiPap mask has been uncomfortable and will remove it prematurely in the mornings. Patient is now A&Ox3. Patient is able to move all four extremities and follow commands. Continue with nocturnal Bipap. Pending CVA workup otherwise.
--- NOTE | 2025-03-26 12:30 | PC.NURSE ---
pt and linens changed, pt adjusted in bed.
[2025-03-26] MEDS: ASCORBIC ACID 250 MG TABLET 500 MG PO ×2 (12:56→20:34)
[2025-03-26] MEDS: ASPIRIN EC 81 MG TABEC PO (12:57)
[2025-03-26 13:17] LABS: Basophils % (Auto) 0 % (0-2.5); Eosinophils % (Auto) 0 % (0-10); Hematocrit 30.2 % (36.0-46.0); Hemoglobin 9.1 g/dL (12.0-16.0); Immature Granulocytes % (Auto) 0 % (0-0); Immature Granulocytes Auto 0.02 Thou/mm3 (0.00-0.00); Lymphocytes # (Auto) 0.4 Thou/mm3 (1.0-4.8); Lymphocytes % (Auto) 4 % (10-50); Mean Corpuscular HGB Conc 30.1 g/dl (31.0-37.0); Mean Corpuscular Hemoglobin 26.4 pg (25.0-35.0); Mean Corpuscular Volume 88 fL (80-100); Monocytes # (Auto) 0.1 Thou/mm3 (0.0-0.8); Monocytes % (Auto) 1 % (0-12); Neutrophils # (Auto) 8.3 Thou/mm3 (1.8-7.7); Neutrophils % (Auto) 95 % (37-80); Nucleated Red Blood Cell % 0 /100 WBC (0); Platelet Count 316 Thou/mm3 (140-440); RDW Standard Deviation 49.7 fL (36.4-46.3); Red Blood Count 3.45 Miln/mm3 (4.00-5.20); White Blood Count 8.7 Thou/mm3 (3.6-11.0)
[2025-03-26 13:53] LABS: Anion Gap 4 (7-16); BUN/Creatinine Ratio 34 Ratio (12-20); Blood Urea Nitrogen 24 mg/dL (9-23); Calcium 9.1 mg/dL (8.3-10.6); Carbon Dioxide 32.7 mMol/L (20.0-31.0); Chloride 106 mMol/L (98-107); Creatinine (Component) 0.7 mg/dL (0.6-1.3); Estimated Creatinine Clearance 59.7 mL/min (>60); Glucose 149 mg/dL (74-106); Osmolality,Calculated 291 (275-295); Potassium 5.2 mMol/L (3.4-5.1); Sodium 143 mMol/L (136-145); eGFR > 60 See Note
--- NOTE | 2025-03-26 17:23 | PD.NEUROCONS ---
History of Present Illness Data of Consult Requesting Physician: Jose Mckee MD Primary Care Provider: Monique Hui MD Consult Narrative cc:: cc: Jose Mckee MD Meds Home Medications and Allergies Allergies Allergy/AdvReac Type Severity Reaction Status Date / Time No Known Allergies Allergy Verified 03/25/25 19:14 Exam - Neurology Vital Signs Temp Pulse Resp BP Pulse Ox O2 Del Method O2 Flow Rate 99.3 F 101 H 31 H 167/96 H 94 L Nasal Cannula 3 03/26/25 15:51 03/26/25 15:51 03/26/25 15:51 03/26/25 15:51 03/26/25 15:51 03/26/25 15:51 03/26/25 15:51 FiO2 28 03/26/25 10:00 Results Labs 03/26/25 13:09 03/26/25 13:09 Labs: Short CBC 03/25/25 03/26/25 03/26/25 Range/Units 20:04 05:06 13:09 WBC 9.8 8.4 8.7 (3.6-11.0) Thou/mm3 Hgb 8.1 L 6.9 L* 9.1 L D (12.0-16.0) g/dL Hct 27.4 L 23.8 L 30.2 L (36.0-46.0) % Plt Count 309 245 D 316 D (140-440) Thou/mm3 BMP 03/25/25 03/26/25 03/26/25 20:04 05:06 13:09 Sodium 139 143 143 Potassium 5.1 5.2 H 5.2 H Chloride 101 105 106 Carbon Dioxide 35.5 H 35.5 H 32.7 H BUN 21 25 H 24 H Creatinine 0.8 0.7 0.7 Glucose 171 H 105 D 149 H Calcium 9.2 8.6 9.1 Cardiac Enzymes 03/25/25 03/26/25 Range/Units 20:04 00:40 Total Creatine Kinase 29 L (34-171) U/L Troponin I < 0.020 (0.0-0.045) ng/mL Liver Function 03/25/25 Range/Units 20:04 Total Bilirubin 0.2 L (0.3-1.2) mg/dL AST 14 (0-34) U/L ALT 17 (10-49) U/L Alkaline Phosphatase 92 (46-116) U/L Albumin 4.2 (3.4-4.8) gm/dL Urine 03/25/25 Range/Units 20:04 Urine Color Lt-Yellow (Lt Yel-Yel) Urine Clarity Clear (Clear/Hazy) Urine pH 6.0 (5.0-7.0) Ur Specific [place] 1.017 (1.001-1.035) Urine Protein 1+ A (Neg - Trace) Urine Glucose (UA) Negative (Negative) ABG Interpretation ABG results: 03/26/25 03/26/25 01:01 05:06 ABG pH 7.15 L* 7.31 L D ABG pCO2 104 H* 68 H D ABG pO2 196 H 60 L D ABG HCO3 36 H 35 H ABG O2 Saturation 100 H 92 ABG Base Excess 6 H 7 H
[2025-03-26] MEDS: APIXABAN 2.5 MG TABLET 5 MG PO (20:33)
[2025-03-26] MEDS: ATORVASTATIN CALCIUM 20 MG TABLET 40 MG PO (20:34)
[2025-03-26] MEDS: AZITHROMYCIN INJ 500 MG in SODIUM CHLORIDE 0.9% 250 ML 250 ML 250 MG IV (20:34)
[2025-03-27] VITALS (15 sets, daily range): BP systolic 133–173; BP diastolic 67–93; PULSE 67–99; RESP 12–97; TEMP 36.2–36.8; O2SAT 93–98; BMI 29.9
[2025-03-27 06:26] LABS: Basophils % (Auto) 0 % (0-2.5); Eosinophils % (Auto) 0 % (0-10); Hematocrit 29.2 % (36.0-46.0); Hemoglobin 8.9 g/dL (12.0-16.0); Immature Granulocytes % (Auto) 0 % (0-0); Immature Granulocytes Auto 0.02 Thou/mm3 (0.00-0.00); Lymphocytes # (Auto) 0.8 Thou/mm3 (1.0-4.8); Lymphocytes % (Auto) 8 % (10-50); Mean Corpuscular HGB Conc 30.5 g/dl (31.0-37.0); Mean Corpuscular Hemoglobin 26.4 pg (25.0-35.0); Mean Corpuscular Volume 87 fL (80-100); Monocytes # (Auto) 1.2 Thou/mm3 (0.0-0.8); Monocytes % (Auto) 12 % (0-12); Neutrophils # (Auto) 7.8 Thou/mm3 (1.8-7.7); Neutrophils % (Auto) 80 % (37-80); Nucleated Red Blood Cell % 0 /100 WBC (0); Platelet Count 322 Thou/mm3 (140-440); RDW Standard Deviation 50.5 fL (36.4-46.3); Red Blood Count 3.37 Miln/mm3 (4.00-5.20); White Blood Count 9.8 Thou/mm3 (3.6-11.0)
[2025-03-27 06:44] LABS: Anion Gap 5 (7-16); BUN/Creatinine Ratio 34 Ratio (12-20); Blood Urea Nitrogen 24 mg/dL (9-23); Calcium 9.2 mg/dL (8.3-10.6); Carbon Dioxide 34.7 mMol/L (20.0-31.0); Chloride 101 mMol/L (98-107); Creatinine (Component) 0.7 mg/dL (0.6-1.3); Estimated Creatinine Clearance 63.1 mL/min (>60); Glucose 98 mg/dL (74-106); Osmolality,Calculated 285 (275-295); Phosphorous 2.8 mg/dL (2.4-5.1); Potassium 4.6 mMol/L (3.4-5.1); Sodium 141 mMol/L (136-145); eGFR > 60 See Note
[2025-03-27] MEDS: levETIRAcetam INJ 100 MG/ML VIAL 5ML 500 MG IVP ×2 (09:12→21:49)
[2025-03-27] MEDS: ASCORBIC ACID 250 MG TABLET 500 MG PO ×2 (09:12→21:48)
[2025-03-27] MEDS: APIXABAN 2.5 MG TABLET 5 MG PO ×2 (09:12→21:49)
[2025-03-27] MEDS: PANTOPRAZOLE INJ 40 MG VIAL IV (09:12)
[2025-03-27] MEDS: ASPIRIN EC 81 MG TABEC PO (09:13)
[2025-03-27] MEDS: DILTIAZEM CD 180 MG CAPCR PO (09:13)
[2025-03-27] MEDS: cefTRIAXone/D5w 1gm IV premix 1 GM/50 ML BAG IV (09:13)
--- NOTE | 2025-03-27 09:17 | PC.SS ---
GRAPE CRUSHER conducted bedside contact with the patient conduct initial assessment and to discuss discharge planning.? Patient confirmed demographic information.? Patient is a resident of [facility].? Patient utilizes a wheelchair for mobility.? Patient utilizes oxygen at [facility].? Patient requires assistance with completion of ADL?s.? Patient identified niece, Darryn Hernández ; as surrogate medical decision maker.? Patient?s PCP is Dr. Hui.? Patient does not participate with dialysis.? Patient does not possess any specialty providers.? Patient does not possesses history of diabetes.? Plan is for the patient to return to [facility] at the time of discharge.? Patient possesses coverage for transportation. ?deputy sheriff court services arrange transportation on behalf of the patient. ?No further discharge needs identified by the patient.? No further intervention required at this time, family welfare social work professor will be available to address any further concerns.? Next of Kin: Doreenshara Edgar D/C Plan: [facility]
[2025-03-27] MEDS: FUROSEMIDE INJ 10 MG/ML 4ML VIAL 40 MG IVP (10:38)
[2025-03-27] MEDS: LOSARTAN POTASSIUM 25 MG TABLET 50 MG PO ×2 (10:39→21:48)
--- NOTE | 2025-03-27 14:03 | PD.RESPRO ---
Documentation for date of: 03/27/25 Subjective Subjective Interval history: No overnight events. Patient seen examined at bedside, resting comfortably. Patient A&O x 3, overall feels well. Denies fevers, chills, chest pain, shortness of breath, nausea, vomiting. Change steroids to p.o. prednisone. Added Lasix. Follow-up on neuro recs, stool occult blood. Exam Vital Signs Temp Pulse Resp BP Pulse Ox O2 Del Method O2 Flow Rate 97.8 F 97 28 H 155/75 H 95 Nasal Cannula 1 03/27/25 12:00 03/27/25 12:00 03/27/25 12:00 03/27/25 12:00 03/27/25 12:00 03/27/25 12:00 03/27/25 12:00 FiO2 30 03/27/25 04:45 Narrative Exam GENERAL: no acute distress, AAO x3, well nourished. HEENT: Head AT/ NC. Mucous membranes moist. PERRL. NECK: Supple, no lymphadenopathy, no carotid bruits. CARDIOVASCULAR: RRR. Normal S1/S2, No m/r/g. RESPIRATORY: Negative for rhonchi, crackles, however exam was limited due to body habitus GASTROINTESTINAL: Abdomen soft, protuberant, non tender with no palpable masses. Bowel sounds present in all 4 quadrants. MUSCULOSKELETAL:? No cyanosis or edema, no visible joint swelling. NEUROLOGICAL: CN II-XII grossly intact. Sensation intact, symmetric. PSYCHIATRIC: Awake and alert, not agitated, normal mood and affect. INTEGUMENTARY: No obvious rashes, no jaundice, normal turgor. Objective Labs 03/28/25 04:54 03/28/25 04:54 Labs: Laboratory Results - last 24 hr 03/27/25 05:41 WBC 9.8 RBC 3.37 L Hgb 8.9 L Hct 29.2 L MCV 87 MCH 26.4 MCHC 30.5 L RDW Std Deviation 50.5 H Plt Count 322 Neut % (Auto) 80 Lymph % (Auto) 8 L [place] % (Auto) 12 Eos % (Auto) 0 Baso % (Auto) 0 Neut # (Auto) 7.8 H Lymph # (Auto) 0.8 L [place] # (Auto) 1.2 H Eos # (Auto) 0.0 Baso # (Auto) 0.0 Immature Gran # (Auto) 0.02 H Absolute Nucleated RBC 0.00 Immature Gran % 0 Nucleated RBC % 0 Sodium 141 Potassium 4.6 D Chloride 101 Carbon Dioxide 34.7 H Anion Gap 5 L BUN 24 H Creatinine 0.7 Estim Creat Clear Calc 63.1 eGFR > 60 BUN/Creatinine Ratio 34 H Glucose 98 D Calculated Osmolality 285 Calcium 9.2 Phosphorus 2.8 Magnesium 2.0 ABG Interpretation ABG results: 03/26/25 03/26/25 01:01 05:06 ABG pH 7.15 L* 7.31 L D ABG pCO2 104 H* 68 H D ABG pO2 196 H 60 L D ABG HCO3 36 H 35 H ABG O2 Saturation 100 H 92 ABG Base Excess 6 H 7 H Quality Measures Quality Measures sepsis Current suspected stage: sepsis Possible source: pulmonary Blood cultures ordered: yes Antibiotic ordered: Yes Advance care planning discussed with:: patient Assessment & Plan Assessment Current Active Medications: Generic Name Dose Route Start Last Admin Trade Name Freq PRN Reason Stop Dose Admin Acetaminophen 650 mg 03/25/25 23:31 Acetaminophen 325 Mg Tablet PO 04/24/25 23:30 Q6H PRN Fever >101.5 Acetaminophen 650 mg 03/25/25 23:31 Acetaminophen Supp 650 Mg Supp NC 04/24/25 23:30 Q6H PRN PAIN SCALE 1-3 (mild Hydrocodone Bitart/Acetaminophen 1 tab 03/25/25 23:31 Hydrocodone/Apap 5/325 Tablet PO 03/30/25 23:30 Q4HR PRN Pain Scale 4-10 Apixaban 5 mg 03/26/25 09:00 03/27/25 09:12 Apixaban 2.5 Mg Tablet PO 04/25/25 08:59 5 mg BID SALAZAR Administration Ascorbic Acid 500 mg 03/26/25 09:00 03/27/25 09:12 Ascorbic Acid 250 Mg Tablet PO 04/25/25 08:59 500 mg BID SALAZAR Administration Aspirin 81 mg 03/26/25 09:00 03/27/25 09:13 Aspirin Ec 81 Mg Tabec PO 04/25/25 08:59 81 mg QDAY SALAZAR Administration Atorvastatin Calcium 40 mg 03/26/25 21:00 03/26/25 20:34 Atorvastatin Calcium 20 Mg Tablet PO 04/25/25 20:59 40 mg HS SALAZAR Administration Bisacodyl 10 mg 03/25/25 23:36 Bisacodyl 10 Mg Supp NC 04/24/25 23:35 QDAY PRN CONSTIPATION Protocol Dextrose 25 ml 03/25/25 23:51 Dextrose 50%-Water Inj 50 Ml Syringe IV 04/24/25 23:50 Q15MIN PRN BG 50-70 responsive npo pt Dextrose 50 ml 03/25/25 23:51 Dextrose 50%-Water Inj 50 Ml Syringe IV 04/24/25 23:50 Q15MIN PRN BG <50 OR BG <70 & pt unresponsive Diltiazem HCl 180 mg 03/27/25 09:00 03/27/25 09:13 Diltiazem Cd 180 Mg Capcr PO 04/26/25 08:59 180 mg QDAY SALAZAR Administration Furosemide 40 mg 03/27/25 10:00 03/27/25 10:38 Furosemide Inj 10 Mg/Ml 4ml Vial IVP 04/26/25 09:59 40 mg QDAY SALAZAR Administration Glucagon 1 mg 03/25/25 23:51 Glucagon Inj 1 Mg Vial IM Q15MIN PRN BG <70, and no IV access Hydralazine HCl 25 mg 03/26/25 09:00 Hydralazine Hcl 25 Mg Tablet PO 04/25/25 08:59 BID SALAZAR Ceftriaxone Sodium/Dextrose 1 gm in 50 mls @ 100 mls/hr 03/26/25 09:00 03/27/25 09:13 Rocephin/D5w 1gm Iv Premix IV 04/02/25 08:59 100 mls/hr QDAY SALAZAR Administration Azithromycin 500 mg/ Sodium 250 mls @ 250 mls/hr 03/26/25 21:00 03/26/25 20:34 Chloride IV 04/02/25 20:59 250 mls/hr QDAY@2100 SALAZAR Administration Insulin Human Lispro 0 unit 03/26/25 06:00 03/27/25 11:24 Insulin Lispro (Admelog) 1 Unit/0.01 Ml Unit SC 04/25/25 05:59 Not Given Q6HR SALAZAR Protocol Ipratropium [place] 0.5 mg 03/25/25 23:36 Ipratropium Rt 0.5 Mg/ 2.5 Ml Nebu INH 04/24/25 23:35 Q6HR PRN SHORTNESS OF BREATH Labetalol HCl 10 mg 03/26/25 18:28 Labetalol Inj 5 Mg/Ml Vial 20 Ml IVP 04/25/25 18:29 Q6H PRN hypertention Levalbuterol HCl 1.25 mg 03/25/25 23:36 Levalbuterol Rt 1.25 Mg/0.5 Ml Nebu INH 04/24/25 23:35 Q6HR PRN WHEEZING Levetiracetam 500 mg 03/26/25 02:20 03/27/25 09:12 Levetiracetam Inj 100 Mg/Ml Vial 5ml IVP 04/25/25 02:19 500 mg Q12HR SALAZAR Administration Losartan Potassium 50 mg 03/27/25 10:00 03/27/25 10:39 Losartan Potassium 25 Mg Tablet PO 04/26/25 09:59 50 mg BID SALAZAR Administration Ondansetron HCl 4 mg 03/25/25 23:31 Ondansetron Inj 2 Mg/Ml Inj 2 Ml IV 04/24/25 23:30 Q6H PRN NAUSEA OR VOMITING Protocol Pantoprazole Sodium 40 mg 03/26/25 09:00 03/27/25 09:12 Pantoprazole Inj 40 Mg Vial IV 04/25/25 08:59 40 mg QDAY SALAZAR Administration Prednisone 50 mg 03/28/25 09:00 Prednisone 20 Mg Tablet PO 04/27/25 08:59 QDAY SALAZAR Sennosides 1 tab 03/25/25 23:31 Senna Tablet PO 04/24/25 23:30 QDAY PRN constipation Protocol Sodium Chloride 3 ml 03/25/25 23:36 Sodium Chloride Rt Ludmila 0.9% 3 Ml Nebu INH 04/24/25 23:35 PRN PRN SOLN Plan This patient is a 84-year-old female from [facility] with past medical history of pulmonary hypertension, A-fib on Eliquis, hypertension, hyperlipidemia, TIA on aspirin, polyneuropathy is on gabapentin, CHF with diastolic dysfunction, COPD, chronic anemia and constipation, muscle weakness and difficulty walking presented on 03/25/25 with chief complaint of worsening shortness of breath and altered mental status per [facility] nursing. Patient was admitted for further workup and management of acute encephalopathy likely in a setting of acute hypercapnic respiratory failure due to COPD versus community-acquired pneumonia and stroke #Acute encephalopathy likely related to hypercapnia versus stroke versus polypharmacy-resolved #Stroke workup #Hypercapnia likely due to COPD Patient came with altered mental status. Per EMS patient has a GCS of 15. Patient takes tramadol 50 mg BID and Gabapentin 300 mg twice a day at the facility. Head CT (prelim) :showed acute infarction in the left side of vivien, left cerebellar peduncle and left cerebellar hemisphere; However final read are :Low density in the left brain stem axial image 30 which may be artifactual, clinical correlation advised Teleneuro recommended to do an MRI brain without contrast and reported the patient was out of window for tPA as symptoms with unknown time and did not give a bolus of aspirin for now. ABG : remarkable for respiratory acidosis Patient encephalopathy rapidly resolved, currently A&O x 3, alert and appropriately responsive. MRI showed no acute pathology but chronic multi-infarct dementia pattern. ? Bipap HS ? Head of the bed elevation ? Aspiration precautions ? Speech therapy/PT ? Consulting neurologist, Dr Jose, appreciate recs ? Treating underlying cause #Acute hypercapnic respiratory failure Likely due to COPD exacerbation #CAP #COPD exacerbation Patient presented due to worsening shortness of breath and altered mental status. Patient uses BiPAP at the facility per nursing. She was slightly hypertensive, had irregular pulse, tachypneic and hypothermic with temperature 96.5. She was saturating 95% on 4 L NC. She is on Oxygen at facility around 3 L . Labs showed stable white count. Chemistry panel was showing borderline hyperkalemia with potassium 5.1. Bicarb elevated at 35.5.Lactic acid 0.5. Procalcitonin negative. Troponin I was negative. Chest x-ray showed prominent vascular congestion and bibasilar pneumonia. ABGs showed pH 7.15, pCO2 104, pO2 196. Bicarb 36. Started on BiPAP as tolerated, was weaned off. ? Started IV ceftriaxone and azithromycin and - Prednisone p.o. 50 mg qday ? Levalbuterol and Ipratropium ? Oxygen as needed, goal of oxygen 88-92% ? F/U with BC and MRSA screen ? F/U with morning labs #History of CHF with diastolic dysfunction #History of pulmonary hypertension #Mild contraction alkalosis on diuretics Patient did had 1+ edema in both lower extremities. She is taking Lasix every other day. ?Strict DILIP's with fluid restriction upto 1500 cc ?Monitor electrolytes closely -ECHO, follow #History of hypertension #History of hyperlipidemia Patient was taking losartan, hydralazine and labetalol. Labetalol was recently held. ?resumed GIANG and losartan, pending the rest of the med recs ?Monitor vitals - Consider adding amlodipine #History of TIA on aspirin -ASA 81 #History of chronic pain on tramadol and gabapentin Per patient's medication patient takes tramadol and gabapentin at the facility. -pending med recs #History of seizures ? Patient takes Keppra at the facility, resumed #History of chronic A-fib on Eliquis Patient is currently rate controlled. EKG showed A-fib with rate 80 bpm. Troponin I was negative. [id number] score:7 and HAS-Bled 4 -Continue Eliquis 5 mg twice daily -Keep mag above 2 and potassium above 4 -Telemetry monitoring #Normocytic anemia Hemoglobin at 8.1. Hbg droped, patient recieved 1 PRBC, repeat HxH was 8. ?FOBT to rule out GI bleed -monitor Hx H #History of GERD ?Protonix 40 DVT prophylaxis: elequis GI prophylaxis: PPI Diet: disphagia 2 Lines: PIV CODE STATUS:DNR per POLST form from [facility] Patient care was discussed with attending physician Dr. Pro. Jorge Luis Clement MD PGY?1 Attending Provider Attestation/Addendum I, Maryse Pro, DO, attest that I was physically present for the gracia portions of the service and evaluated the patient with the resident and I reviewed and discussed the case with the resident and agree with the resident's findings and plans of care as documented above Patient seen and evaluated this AM. Patient is A&Ox3. She denies any shortness of breath or chest pain. Patient was able to comply with nocturnal bipap overnight. No wheezing, mild rhonchi noted in b/l lung vargas noted on exam with diminished breath sounds in RLL. Will DC steroids and continue IV abx at this time. F/u with final cultures and sensitvities. Uptitrate antihypertensives as needed. Anticipate DC wtihin next 24-48h.
[2025-03-27] MEDS: ATORVASTATIN CALCIUM 20 MG TABLET 40 MG PO (21:48)
[2025-03-27] MEDS: AZITHROMYCIN INJ 500 MG in SODIUM CHLORIDE 0.9% 250 ML 250 ML 250 MG IV (21:50)
[2025-03-28] VITALS (10 sets, daily range): BP systolic 109–149; BP diastolic 54–87; PULSE 63–90; RESP 16–20; TEMP 36–36.6; O2SAT 92–100; BMI 29.9
--- NOTE | 2025-03-28 00:03 | VVPN_ITS ---
Telemedicine visit statement This visit was conducted with the use of interactive audio and video telecommunications system that permits real time communication between the patient and the provider. Patient's verbal consent for virtual visit was obtained on 03/28/25 at 0003. Documentation for date of: 03/28/25 Subjective Subjective Interval history: Patient is in telemetry. No new symptoms reported. Able to breathe fine. Her mental status is back to baseline. Virtual exam Vital Signs Temp Pulse Resp BP Pulse Ox O2 Del Method O2 Flow Rate 97.1 F 77 16 141/79 H 97 Nasal Cannula 2 03/27/25 20:00 03/27/25 23:02 03/27/25 23:02 03/27/25 21:48 03/27/25 23:02 03/27/25 20:00 03/27/25 20:00 FiO2 30 03/27/25 23:02 Objective Labs 03/27/25 05:41 03/27/25 05:41 Labs: Laboratory Results - last 24 hr 03/27/25 05:41 WBC 9.8 RBC 3.37 L Hgb 8.9 L Hct 29.2 L MCV 87 MCH 26.4 MCHC 30.5 L RDW Std Deviation 50.5 H Plt Count 322 Neut % (Auto) 80 Lymph % (Auto) 8 L [place] % (Auto) 12 Eos % (Auto) 0 Baso % (Auto) 0 Neut # (Auto) 7.8 H Lymph # (Auto) 0.8 L [place] # (Auto) 1.2 H Eos # (Auto) 0.0 Baso # (Auto) 0.0 Immature Gran # (Auto) 0.02 H Absolute Nucleated RBC 0.00 Immature Gran % 0 Nucleated RBC % 0 Sodium 141 Potassium 4.6 D Chloride 101 Carbon Dioxide 34.7 H Anion Gap 5 L BUN 24 H Creatinine 0.7 Estim Creat Clear Calc 63.1 eGFR > 60 BUN/Creatinine Ratio 34 H Glucose 98 D Calculated Osmolality 285 Calcium 9.2 Phosphorus 2.8 Magnesium 2.0 ABG Interpretation ABG results: 03/26/25 03/26/25 01:01 05:06 ABG pH 7.15 L* 7.31 L D ABG pCO2 104 H* 68 H D ABG pO2 196 H 60 L D ABG HCO3 36 H 35 H ABG O2 Saturation 100 H 92 ABG Base Excess 6 H 7 H Assessment & Plan Problem List (1) Altered mental status: Status: Resolved Assessment and plan: Secondary to hypoxic encephalopathy from hypercapnia with a CO2 retention. Her mental status is back to baseline. No neuro interventions needed. Patient is neurologically stable. (2) Seizures: Status: Chronic Assessment and plan: Continue with the Keppra and follow seizure precautions.
[2025-03-28 05:37] LABS: Basophils % (Auto) 0 % (0-2.5); Eosinophils # (Auto) 0.1 Thou/mm3 (0.0-0.5); Eosinophils % (Auto) 1 % (0-10); Immature Granulocytes % (Auto) 0 % (0-0); Immature Granulocytes Auto 0.02 Thou/mm3 (0.00-0.00); Lymphocytes % (Auto) 12 % (10-50); Mean Corpuscular HGB Conc 30.4 g/dl (31.0-37.0); Mean Corpuscular Hemoglobin 26.6 pg (25.0-35.0); Mean Corpuscular Volume 88 fL (80-100); Monocytes % (Auto) 12 % (0-12); Neutrophils % (Auto) 75 % (37-80); Nucleated Red Blood Cell % 0 /100 WBC (0); Platelet Count 274 Thou/mm3 (140-440); Red Blood Count 3.08 Miln/mm3 (4.00-5.20)
[2025-03-28 05:50] LABS: Hemoglobin 8.2 g/dL (12.0-16.0)
[2025-03-28 06:12] LABS: Anion Gap 2 (7-16); BUN/Creatinine Ratio 37 Ratio (12-20); Blood Urea Nitrogen 26 mg/dL (9-23); Calcium 8.5 mg/dL (8.3-10.6); Carbon Dioxide 37.8 mMol/L (20.0-31.0); Chloride 101 mMol/L (98-107); Creatinine (Component) 0.7 mg/dL (0.6-1.3); Estimated Creatinine Clearance 63.1 mL/min (>60); Glucose 88 mg/dL (74-106); Magnesium 1.7 mg/dL (1.6-2.6); Osmolality,Calculated 284 (275-295); Phosphorous 2.9 mg/dL (2.4-5.1); Potassium 4.4 mMol/L (3.4-5.1); Sodium 141 mMol/L (136-145); eGFR > 60 See Note
[2025-03-28] MEDS: LOSARTAN POTASSIUM 25 MG TABLET 50 MG PO (08:58)
[2025-03-28] MEDS: hydrALAZINE HCL 25 MG TABLET PO (08:59)
[2025-03-28] MEDS: DILTIAZEM CD 180 MG CAPCR PO (08:59)
[2025-03-28] MEDS: FUROSEMIDE INJ 10 MG/ML 4ML VIAL 40 MG IVP (08:59)
[2025-03-28] MEDS: levETIRAcetam INJ 100 MG/ML VIAL 5ML 500 MG IVP (09:00)
[2025-03-28] MEDS: PANTOPRAZOLE INJ 40 MG VIAL IV (09:00)
[2025-03-28] MEDS: ASCORBIC ACID 250 MG TABLET 500 MG PO (09:00)
[2025-03-28] MEDS: ASPIRIN EC 81 MG TABEC PO (09:00)
[2025-03-28] MEDS: APIXABAN 2.5 MG TABLET 5 MG PO (09:00)
[2025-03-28] MEDS: cefTRIAXone/D5w 1gm IV premix 1 GM/50 ML BAG IV (09:01)
[2025-03-28] MEDS: predniSONE 40 MG, predniSONE 10 MG 50 MG PO (09:55)
[2025-03-28 10:12] LABS: Misc Send Out* See Sep Rpt
--- NOTE | 2025-03-28 13:24 | ESDS_ITS ---
<Statement entered by Maryse Pro DO - 03/29/25 07:26> I, Maryse Pro DO, attest that I was physically present for the gracia portions of the service and evaluated the patient with the resident and I reviewed and discussed the case with the resident and agree with the resident's findings and plans of care as documented above <Statement entered by Betty Aranda MD - 03/28/25 14:24> 84-year-old female past medical history of pulmonary hypertension, A-fib on Eliquis, hypertension, hyperlipidemia, TIA on aspirin, polyneuropathy, CHF, COPD who resides in SNF was admitted for acute encephalopathy, suspected to be secondary to hypercapnia vs. polypharmacy. In the ED, a stroke workup was initiated. Teleneurology was consulted, but stroke was deemed unlikely; MRI was obtained, which showed no acute findings but demonstrated chronic multi-infarct changes consistent with vascular dementia. ABG revealed respiratory acidosis, and the patient was started on BiPAP, resulting in significant improvement in hypercapnia and return of mentation to baseline. She was also treated for CHF exacerbation with IV diuretics, COPD exacerbation with steroids. For suspected superimposed pneumonia, the patient was started on antibiotics. Cultures remained negative. She improved clinically and will complete treatment with oral Augmentin for 5 more days as an outpatient. At one point during admission, hemoglobin dropped below 7, and the patient received 1 unit of PRBCs. Hemoglobin stabilized thereafter, with no signs or symptoms of active bleeding. On evaluation today, the patient is hemodynamically stable, saturating well on room air, and tolerating BiPAP. She is being discharged with tapering steroids and oral antibiotics. Discharge Augmentin (to complete 5-day course for pneumonia). Tapering dose of steroids Discharge to SNF All discharge instructions, medication changes, and follow-up plans were discussed. Patient verbalized understanding. For more detailed information, please refer to the discharge summary completed by Dr. Tsai. Planned Discharge Date 03/28/25 DS: Providers Provider Date of admission: 03/26/25 00:10 Primary care physician: Monique Hui MD Admitting Provider: Jose Mckee MD Attending Provider on Admission: Maryse Pro DO Consults: 03/25/25 23:37 Referral Speech Therapy Routine Comment: 03/26/25 00:50 Consult to Neurology / Tele-Neurology Routine Comment: Consulting Provider: [facility] 03/26/25 01:15 Referral Physical Therapy Routine Comment: Physician Instructions: 03/26/25 02:05 Consult to Neurology / Tele-Neurology Routine Comment: Consulting Provider: Jon Jose Attending Provider on DC: Maryse Pro DO Discharging Provider: Jorge Luis Clement MD DS: Diagnosis Problem List Completed Was Problem List Reviewed/Reconciled?: Yes Hospital Course Hospital Course Hospital course: 84-year-old female from [facility] with past medical history of pulmonary hypertension, A-fib on Eliquis, hypertension, hyperlipidemia, TIA on aspirin, polyneuropathy, CHF with diastolic dysfunction, COPD, chronic anemia and const ipation, muscle weakness and difficulty walking presented on 03/25/25 with chief complaint of worsening shortness of breath and altered mental status, admitted for further workup and management of acute encephalopathy. Neurology was consulted. Head CT showed potential acute infarct, however this was ruled out by MRI. ABG showed respiratory acidosis, imaging showed pneumonia. Patient treated with BiPAP, antibiotics, steroids and breathing treatments for COPD exacerbation. Patient showed significant improvement during length of stay, returned to baseline mentation. Patient cleared for discharge from neurology perspective. Patient medically stable and cleared for discharge. Discharge plan: continue home medication as prescribed take Prednizone taper, instruction is in on box, below take Augmentin 1 tab twice daily for 5 more days to complete antibiotic course for pneumonia Follow with Primary care physicain in 1 week after discharge have BiPap at night(MUST) repeat CBC and CMP in 1 week after discharge returne to ED anytime symptoms worsens Diagnoses: #Acute encephalopathy likely related to hypercapnia versus stroke versus polypharmacy-resolved #Stroke workup #Hypercapnia likely due to COPD #Acute hypercapnic respiratory failure Likely due to COPD exacerbation #CAP #COPD exacerbation #History of CHF with diastolic dysfunction #History of pulmonary hypertension #Mild contraction alkalosis on diuretics #History of hypertension #History of hyperlipidemia #History of TIA on aspirin #History of chronic pain on tramadol and gabapentin #History of seizures #History of chronic A-fib on Eliquis #Normocytic anemia #History of GERD Patient care was discussed with senior resident Dr. Aranda PGY?[address] Pro. Jorge Luis Clement MD PGY?1 Status at Discharge Overall status at discharge: patient is progressing back to baseline Time Spent with Patient Time attestation: Total time spent providing and/or coordinating discharge services: Time spent: Greater than 30 minutes Exam Vital Signs Temp Pulse Resp BP Pulse Ox O2 Del Method O2 Flow Rate 97.6 F 80 20 131/78 H 100 Nasal Cannula 3 03/28/25 12:00 03/28/25 12:00 03/28/25 12:00 03/28/25 12:00 03/28/25 12:00 03/28/25 12:00 03/28/25 12:00 FiO2 30 03/28/25 08:00 Narrative Exam GENERAL: no acute distress, AAO x3, well nourished. HEENT: Head AT/ NC. Mucous membranes moist. PERRL. NECK: Supple, no lymphadenopathy, no carotid bruits. CARDIOVASCULAR: RRR. Normal S1/S2, No m/r/g. RESPIRATORY: Negative for rhonchi, crackles, however exam was limited due to body habitus GASTROINTESTINAL: Abdomen soft, protuberant, non tender with no palpable masses. Bowel sounds present in all 4 quadrants. MUSCULOSKELETAL:? No cyanosis or edema, no visible joint swelling. NEUROLOGICAL: CN II-XII grossly intact. Sensation intact, symmetric. PSYCHIATRIC: Awake and alert, not agitated, normal mood and affect. INTEGUMENTARY: No obvious rashes, no jaundice, normal turgor. Discharge Plan Plan Patient Disposition: Xfer [facility]) Patient condition on transfer: Stable and Benefits outweigh risks Care Plan Goals: continue home medication as prescribed take Prednizone taper, instruction is in on box, below take Augmentin 1 tab twice daily for 5 more days to complete antibiotic course for pneumonia Follow with Primary care physicain in 1 week after discharge have BiPap at night(MUST) repeat CBC and CMP in 1 week after discharge returne to ED anytime symptoms worsens Prescriptions/Referrals Prescriptions/Med Rec: New prednisone 10 mg tablet 10 mg PO QDAY Qty: 30 0RF Taper: Prednisone Taper 40 mg DAILY for 3 Days and 0 Hour 30 mg DAILY for 3 Days and 0 Hour 20 mg DAILY for 3 Days and 0 Hour 10 mg DAILY for 3 Days amoxicillin-pot clavulanate 875-125 mg tablet 1 tab PO BID 5 Days Qty: 10 0RF Continued acetaminophen [Tylenol] 325 mg tablet 325 mg PO Q6H PRN (Reason: fever or pain) ascorbic acid (vitamin C) [Vitamin C] 500 mg tablet 500 mg PO QDAY aspirin 81 mg tablet,delayed release (DR/EC) 81 mg PO QDAY bisacodyl [Dulcolax (bisacodyl)] 10 mg suppository 10 mg KS QDAY PRN (Reason: constipation) Eliquis 5 mg tablet 5 mg PO BID Fleet Enema 19-7 gram/118 mL enema 118 ml KS QDAY PRN (Reason: constipation) Rx Instructions: If Dulcolax suppository is ineffective. fluticasone propionate 50 mcg/actuation spray,suspension 1 spray INTRANASAL QDAY hydralazine 25 mg tablet 25 mg PO BID Rx Instructions: Hold for SBP <100 or HR <60 levetiracetam 500 mg tablet 500 mg PO BID labetalol 100 mg tablet 100 mg PO QDAY PRN (Reason: HTN) Rx Instructions: give if SBP >160 furosemide 20 mg tablet 20 mg PO Q48H losartan 50 mg tablet 50 mg PO BID Rx Instructions: Hold for SBP <100 or< DBP 60 or pulse <60 magnesium hydroxide [Milk of Magnesia] 400 mg/5 mL suspension 30 ml PO Q72H PRN (Reason: constipation) Rx Instructions: No BM for 3 days gabapentin [Neurontin] 300 mg capsule 300 mg PO BID omeprazole 20 mg capsule,delayed release(DR/EC) 20 mg PO QDAY ondansetron HCl 4 mg tablet 4 mg PO Q6H PRN (Reason: nausea and vomiting) pravastatin 40 mg tablet 40 mg PO QDAY senna 8.6 mg capsule 8.6 mg PO QDAY diltiazem HCl [Tiadylt ER] 180 mg capsule,extended release 24 hr 180 mg PO QDAY Rx Instructions: Hold for SBP <100 or DBP <60 or pulse <60 tramadol 50 mg tablet 50 mg PO Q12H PRN (Reason: pain) diclofenac sodium 1 % gel 1 ea topical Q8HR PRN (Reason: arthritis pain) Rx Instructions: apply to single elbow, wrist or hand; for hand includes palm/fingers/back of hand levalbuterol HCl 1.25 mg/3 mL solution for nebulization 1.25 mg inhalation Q6H PRN (Reason: shortness of breath or wheezing) Referrals: Monique Hui MD [Primary Care Provider] - Patient/Caregiver Discharge Instructions Discharge Activity: activity as tolerated Education Materials: Discharge Instructions for Stroke, What Is a BPAP?, Using a BPAP, Heart Failure Sleep Problems Print Language: Polish Stand Alone Forms: Alysia Award Info., Patient Portal Info Letter Discharge Order Discharge Orders: Discharge (Routine); Ordered 03/28/25 Ordered By: Betty Aranda Quality Discharge Quality Measures VTE prophylaxis
--- NOTE | 2025-03-28 14:57 | PC.SS ---
SS was informed pt is ready for DC. SS submitted clinicals submitted to [facility] via [facility]. Transportation set up via [employer]
--- NOTE | 2025-03-28 15:04 | PC.SS ---
SS contacted pt friend, Darryn Hernández and updated her on DC back to .
--- NOTE | 2025-03-28 15:26 | PC.SS ---
SS follow up note; SS contacted [employer] to check status, at the time there is not an assign transportation team available. Reference #[id number].
--- NOTE | 2025-03-28 19:09 | PC.NURSE ---
Gave Discharge instruction and report to SNF nurse Serina at [facility] at 19:10. Patient to leave at 19:30.
--- NOTE | 2025-03-28 22:48 | ESPR_ITS ---
Documentation for date of: 03/28/25 Subjective Subjective Interval history: Patient was seen in telemetry today. No new symptoms reported. She has not had any episodes suspected of seizures. Her episodes of fainting/near syncope she used to have are all most likely related to hypoxemia rather than seizures. Exam - Neurology Vital Signs Temp Pulse Resp BP Pulse Ox O2 Del Method O2 Flow Rate 97.8 F 84 17 142/63 H 97 Nasal Cannula 3 03/28/25 20:00 03/28/25 20:00 03/28/25 20:00 03/28/25 20:00 03/28/25 20:00 03/28/25 20:00 03/28/25 20:00 FiO2 30 03/28/25 08:00 Narrative Exam GENERAL APPEARANCE: Well hydrated, well-nourished in no acute distress. HEENT: Normocephalic, atraumatic, extraocular movements intact. Pupils: Equal reacting to light and accommodation NECK: Supple, no JVD or bruits. CARDIOVASULAR: Heart: S1, S2 heard, regular without S3-S4 or murmur no rubs or gallops. LUNGS/CHEST: Clear to auscultation bilaterally. No rales, rhonchi, or wheezing. Normal inspection. ABDOMEN: Soft, nontender, with normal bowel sounds. No pulsatile masses. No rebound, rigidity, or guarding. Normal inspection and palpation. EXTREMITIES: Normal inspection and palpation. No edema, clubbing or cyanosis. SKIN: Warm and dry without rashes. Normal inspection. MUSCULOSKELETAL: Restricted range of motion involving both knees secondary to severe osteoarthritis NEURO: Alert, awake and oriented x3. Cranial nerves: II through XII grossly intact. Speech and language: Normal with no dysarthria or dysphasia. Motor system: Tone and bulk: Normal: Strength: 5 out of 5 in all 4 extremities; No pronator drift noted. Deep tendon reflexes: 2+ bilaterally symmetrical. Plantar reflex: Downgoing bilaterally. Sensory system: Intact to all modalities of sensation bilaterally. Coordination: Intact to [id number] and [id number]-[id number] test bilaterally. No ataxia, no dysmetria, or dysdiadochokinesia noted. No intention tremors noted. Gait: Not tested. No signs of meningeal irritation noted. PSYCHIATRIC: Normal mood and affect. Objective Labs 03/28/25 04:54 03/28/25 04:54 Labs: Laboratory Results - last 24 hr 03/28/25 04:54 WBC 8.0 RBC 3.08 L Hgb 8.2 L Hct 27.0 L MCV 88 MCH 26.6 MCHC 30.4 L RDW Std Deviation 52.0 H Plt Count 274 D Neut % (Auto) 75 Lymph % (Auto) 12 [place]ard % (Auto) 12 Eos % (Auto) 1 Baso % (Auto) 0 Neut # (Auto) 6.0 Lymph # (Auto) 1.0 [place]ard # (Auto) 1.0 H Eos # (Auto) 0.1 Baso # (Auto) 0.0 Immature Gran # (Auto) 0.02 H Absolute Nucleated RBC 0.00 Immature Gran % 0 Nucleated RBC % 0 Sodium 141 Potassium 4.4 Chloride 101 Carbon Dioxide 37.8 H Anion Gap 2 L BUN 26 H Creatinine 0.7 Estim Creat Clear Calc 63.1 eGFR > 60 BUN/Creatinine Ratio 37 H Glucose 88 Calculated Osmolality 284 Calcium 8.5 Phosphorus 2.9 Magnesium 1.7 ABG Interpretation ABG results: 03/26/25 03/26/25 01:01 05:06 ABG pH 7.15 L* 7.31 L D ABG pCO2 104 H* 68 H D ABG pO2 196 H 60 L D ABG HCO3 36 H 35 H ABG O2 Saturation 100 H 92 ABG Base Excess 6 H 7 H Assessment & Plan Assessment and plan (1) Altered mental status: Status: Resolved (2) Seizures: Status: Chronic Assessment and plan: Her previous episodes of fainting/near syncope are related to hypoxemia rather than seizures. Will discontinue Keppra. Will consider doing EEG if she has another episode. (3) Pneumonia: Status: Acute Assessment and plan: Continue management per primary team, IV antibiotics and steroids for COPD exacerbation (4) Hypertension: Status: Chronic Assessment and plan: Continue aggressive blood pressure management
== END 2025-03-28 19:44 | disposition skilled nursing facility (03) | DRG 193 ==
LOC: SERX 23:02 → SERHOLD 03-26 00:23 → S2NX 03-26 17:26
PROVIDERS: Student in an Organized Health Care Education/Training Program; Admitting Provider Student in an Organized Health Care Education/Training Program; Emergency Provider Emergency Medicine; PCP Hospitalist; Visit Provider Internal Medicine
DX: J18.9 Pneumonia, unspecified organism (principal); J96.01 Acute respiratory failure with hypoxia; J96.02 Acute respiratory failure with hypercapnia; I50.32 Chronic diastolic (congestive) heart failure; I48.20 Chronic atrial fibrillation, unspecified; J44.0 Chronic obstructive pulmonary disease with (acute) lower respiratory infection; G93.40 Encephalopathy, unspecified; E87.4 Mixed disorder of acid-base balance; J44.1 Chronic obstructive pulmonary disease with (acute) exacerbation; G62.9 Polyneuropathy, unspecified; I27.20 Pulmonary hypertension, unspecified; E78.5 Hyperlipidemia, unspecified; I11.0 Hypertensive heart disease with heart failure; Z66 Do not resuscitate; D64.9 Anemia, unspecified; K59.00 Constipation, unspecified; R26.2 Difficulty in walking, not elsewhere classified; E87.5 Hyperkalemia; G89.29 Other chronic pain; G40.909 Epilepsy, unspecified, not intractable, without status epilepticus; K21.9 Gastro-esophageal reflux disease without esophagitis; R73.9 Hyperglycemia, unspecified; F01.50 Vascular dementia, unspecified severity, without behavioral disturbance, psychotic disturbance, mood disturbance, and anxiety; Z86.73 Personal history of transient ischemic attack (TIA), and cerebral infarction without residual deficits; Z79.82 Long term (current) use of aspirin; Z79.01 Long term (current) use of anticoagulants; Z79.899 Other long term (current) drug therapy
CPT/HCPCS: 36415; 36430; 36600; 70450; 70496; 70498; 70544; 71045; 80048; 80053; 80061; 81001; 82140; 82550; 82728; 82803; 83036; 83540; 83550; 83605; 83735; 84100; 84145; 84443; 84484; 85014; 85018; 85025; 85610; 85730; 86850; 86900; 86901; 86923; 87040; 87081; 87086; 87400; 87811; 92610; 93306; 94660; 96361; 96365; 96367; 96368; 96375; 99291; A4649; J0131; J0456; J0696; J1938; J1953; J2470; J2919; J3475; J7030; J7050; J7512; P9016; Q9967; A9270